=== PATIENT | female | born 1985 | race Caucasian/White ===

== ENCOUNTER 2016-05-30 14:39 | Inpatient (IN) ==
[2016-05-30 15:35] LABS: Bilirubin,Urine Negative (Negative); Blood,Urine Negative (Negative); Clarity,Urine Clear (Clear); Color,Urine Yellow (Yellow); Glucose,Urine (UA) Normal (Normal); Ketones,Urine Negative (Negative); Leukocyte Esterase,Urine Negative (Negative); Nitrite,Urine Negative (Negative); Protein,Urine 30 mg/dL (Neg-Trace); Specific Gravity,Urine 1.011 (1.010-1.025); Urobilinogen,Urine Normal (Normal)
[2016-05-30 15:38] LABS: Bacteria,Urine None Seen per hpf (None-Few); Hyaline Casts,Urine None Seen per lpf (None-Few); RBC,Urine 0-3 per hpf (0-3); Squamous Epithelial Cell,Urine Many per lpf (None-Few); WBC,Urine 0-3 per hpf (0-3)
--- NOTE | 2016-05-30 15:40 | Emergency Department Note ---
Disposition Clinical Impression: Hypokalemia Disposition: Admitted As Inpatient Condition: Good Referrals: NO,PCP [Primary Care Provider] - Forms: ED Satisfaction Letter Time of Disposition: 18:38 General Adult HPI - General Chief complaint: ED Weakness Stated complaint: multiple complaints Time Seen by Provider: 05/30/16 14:57 Source: patient Limitations: no limitations Nursing Notes Reviewed: Yes Vital Signs Reviewed: Yes - History of Present Illness HPI Narrative: 31-year-old presents to mention for weakness and difficulty ambulation. Patient states she had a history of hypokalemia that was so severe it was down to 1.3. She felt the same way she does now. She states she is unable to walk or ambulate. She feels extremely exhausted and has generalized muscle weakness. She denies vomiting or diarrhea. No fevers or chills. No new medications. She is is unclear as to why she had a low potassium at that time as she left the hospital prior to her conclusion of treatment. She returns today for the above symptoms. She has a known IV drug user as well. Onset (ago): day(s) Location: other (Generalized) Pain Scale: 6 Quality: aching Consistency: constant Improves with: nothing Worsens with: other (Activity) Associated symptoms: Reports: loss of appetite, malaise Treatments Prior to Arrival: none - Related Data Home Medications Medication Instructions Recorded Confirmed No Known Home Drugs 01/08/16 01/08/16 Allergies Allergy/AdvReac Type Severity Reaction Status Date / Time No Known Allergies Allergy Verified 05/30/16 14:47 All systems ED: reviewed and negative except as stated. Constitutional: Reports: weakness Cardiovascular: Reports: as per HPI Respiratory: Reports: as per HPI Gastrointestinal: Reports: as per HPI Genitourinary: Reports: frequency Musculoskeletal: Reports: arthralgia, myalgia Integumentary: Reports: as per HPI Neurological: Reports: as per HPI Psychiatric: Reports: as per HPI Endocrine: Reports: as per HPI Hematological/Lymphatic: Reports: as per HPI Allergic/Immunologic: Reports: as per HPI Past Medical History - Past Medical History Medical history: Reports: renal disease Surgical history: Reports: cholecystectomy 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: Reports: depression P[employer] history: Reports: spontaneous - Social History Smoking Status: Current every day smoker Smokeless Tobacco Status: No Alcohol use: Reports: occasionally Drug use: Reports: marijuana, IVDU Physical Exam - General Limitations: no limitations General appearance: alert, in no apparent distress - Head Head exam: atraumatic, normocephalic - ENT ENT exam: normal exam - Neck Neck exam: Present: normal inspection - Chest Chest inspection: Present: normal inspection - Respiratory Respiratory exam: Present: normal lung sounds bilaterally - Cardiovascular Cardiovascular exam: Present: regular rate, normal rhythm, normal heart sounds - Abdominal Exam Abdominal exam: Present: soft, Non-Tender - Extremities Exam Extremities exam: Present: normal inspection - Expanded Lower Extremity Exam Hip/Pelvis exam: Present: normal inspection - Neurological Exam Neurological exam: Present: other (Generalized weakness. pt unable to lift legs on bed.) - Psychiatric Psychiatric exam: Present: depressed - Skin Skin exam: Present: warm, dry, intact Course Course Narrative: Patient was found to have a potassium of 1.6. Her bicarbonate was also low at 11. She had a central line placed in the right internal jugular. We have started IV potassium on her. During the procedure, patient went into bigeminy. Her EKG was abnormal as well with some U waves present. I spoke with the hospitalist. Patient will be admitted to the ICU. Otherwise, her blood pressure is stable and heart rate are stable. Vital Signs Temperature 98.0 F 05/30/16 14:48 Pulse Rate 77 05/30/16 14:48 Respiratory Rate 18 05/30/16 14:48 Blood Pressure 119/85 05/30/16 14:48 O2 Sat by Pulse Oximetry 98 05/30/16 14:48 Temperature 98.0 F 05/30/16 14:48 Pulse Rate 83 05/30/16 18:21 Respiratory Rate 18 05/30/16 18:21 Blood Pressure 119/75 05/30/16 18:21 O2 Sat by Pulse Oximetry 97 05/30/16 18:21 Oxygen Delivery Oxygen Delivery Room Air Medical Decision Making - Medical Records Medical records reviewed: Yes I reviewed the patient's medical records. - Lab Data Lab results reviewed: Yes I reviewed the patient's lab results. Result diagrams: 05/30/16 15:54 05/30/16 15:54 Lab Results 05/30/16 05/30/16 05/30/16 Range/Units 15:10 15:10 15:54 WBC 11.9 H (4.3-11.1) K/mcL RBC 5.53 H (3.82-4.97) M/mcL Hgb 14.8 (11.5-15.4) g/dL Hct 46.1 H (35.3-44.9) % MCV 83.4 (83.0-100.0) fL MCH 26.8 L (28.0-33.3) pg MCHC 32.1 (31.6-35.5) g/dL RDW 18.2 H (11.5-14.5) % Plt Count 273 (140-400) K/mcL MPV 10.3 (9.4-12.4) fL Immature Gran % 0.4 (0-4) % Seg Neutrophils % 65.8 % Lymphocytes % 27.1 % Monocytes % 5.1 % Eosinophils % 1.3 % Basophils % 0.3 % Neutrophils # 7.8 (1.6-8.9) K/mcL Lymphocytes # 3.2 (0.6-4.6) K/mcL Monocytes # 0.6 (0.0-1.3) K/mcL Eosinophils # 0.2 (0.0-0.6) K/mcL Basophils # 0.0 (0.0-0.2) K/mcL Immature Plt Fraction 3.7 (1.1-6.1) % Sodium (136-145) mEq/L Potassium (3.5-4.5) mEq/L Chloride (98-109) mEq/L Carbon Dioxide (19-29) mEq/L BUN (7-20) mg/dL Creatinine (0.57-1.11) mg/dL Est GFR ( Amer) (> 60) Est GFR (Non-Af Amer) (> 60) BUN/Creatinine Ratio (6-26) Glucose (70-99) mg/dL Calculated Osmolality (280-300) Calcium (8.6-10.8) mg/dL Magnesium (1.6-2.6) mg/dL Troponin I (0-0.03) ng/mL Urine Color Yellow (Yellow) Urine Clarity Clear (Clear) Urine pH 7.0 (5.0-8.0) pH Units Ur Specific [place] 1.011 (1.010-1.025) Urine Protein 30 H (Neg-Trace) mg/dL Urine Glucose (UA) Normal (Normal) mg/dL Urine Ketones Negative (Negative) mg/dL Urine Blood Negative (Negative) Urine Nitrite Negative (Negative) Urine Bilirubin Negative (Negative) Urine Urobilinogen Normal (Normal) mg/dL Ur Leukocyte Esterase Negative (Negative) Urine Microscopic RBC 0-3 (0-3) per hpf Urine Microscopic WBC 0-3 (0-3) per hpf Ur Squamous Epith Cells Many H (None-Few) per lpf Urine Bacteria None Seen (None-Few) per hpf Hyaline Casts None Seen (None-Few) per lpf Ur Culture Indicated? NO (NO) Urine Test Negative (Negative) 05/30/16 05/30/16 Range/Units 15:54 15:54 WBC (4.3-11.1) K/mcL RBC (3.82-4.97) M/mcL Hgb (11.5-15.4) g/dL Hct (35.3-44.9) % MCV (83.0-100.0) fL MCH (28.0-33.3) pg MCHC (31.6-35.5) g/dL RDW (11.5-14.5) % Plt Count (140-400) K/mcL MPV (9.4-12.4) fL Immature Gran % (0-4) % Seg Neutrophils % % Lymphocytes % % Monocytes % % Eosinophils % % Basophils % % Neutrophils # (1.6-8.9) K/mcL Lymphocytes # (0.6-4.6) K/mcL Monocytes # (0.0-1.3) K/mcL Eosinophils # (0.0-0.6) K/mcL Basophils # (0.0-0.2) K/mcL Immature Plt Fraction (1.1-6.1) % Sodium 139 (136-145) mEq/L Potassium 1.6 L* (3.5-4.5) mEq/L Chloride 119 H (98-109) mEq/L Carbon Dioxide 11 L (19-29) mEq/L BUN 14 (7-20) mg/dL Creatinine 0.77 (0.57-1.11) mg/dL Est GFR ( Amer) > 60 (> 60) Est GFR (Non-Af Amer) > 60 (> 60) BUN/Creatinine Ratio 18 (6-26) Glucose 136 H (70-99) mg/dL Calculated Osmolality 291 (280-300) Calcium 8.6 (8.6-10.8) mg/dL Magnesium 2.3 (1.6-2.6) mg/dL Troponin I 0.00 (0-0.03) ng/mL Urine Color (Yellow) Urine Clarity (Clear) Urine pH (5.0-8.0) pH Units Ur Specific [place] (1.010-1.025) Urine Protein (Neg-Trace) mg/dL Urine Glucose (UA) (Normal) mg/dL Urine Ketones (Negative) mg/dL Urine Blood (Negative) Urine Nitrite (Negative) Urine Bilirubin (Negative) Urine Urobilinogen (Normal) mg/dL Ur Leukocyte Esterase (Negative) Urine Microscopic RBC (0-3) per hpf Urine Microscopic WBC (0-3) per hpf Ur Squamous Epith Cells (None-Few) per lpf Urine Bacteria (None-Few) per hpf Hyaline Casts (None-Few) per lpf Ur Culture Indicated? (NO) Urine Test (Negative) - Radiology Data Radiology results reviewed: Yes I reviewed the patient's radiology results. Critical Care Time Total Critical Care Time: 40 (Critical care time spent in consultation with the hospitalist as well as medical management of her hypokalemia.)
[2016-05-30 16:24] LABS: Basophils % 0.3 %; Eosinophils # 0.2 K/mcL (0.0-0.6); Eosinophils % 1.3 %; Hematocrit 46.1 % (35.3-44.9); Hemoglobin 14.8 g/dL (11.5-15.4); Immature Granulocytes % 0.4 % (0-4); Immature Platelets 3.7 % (1.1-6.1); Lymphocytes # 3.2 K/mcL (0.6-4.6); Lymphocytes % 27.1 %; Mean Corpuscular HGB Conc 32.1 g/dL (31.6-35.5); Mean Corpuscular Hemoglobin 26.8 pg (28.0-33.3); Mean Corpuscular Volume 83.4 fL (83.0-100.0); Mean Platelet Volume 10.3 fL (9.4-12.4); Monocytes # 0.6 K/mcL (0.0-1.3); Monocytes % 5.1 %; Neutrophils # 7.8 K/mcL (1.6-8.9); Platelet Count 273 K/mcL (140-400); Red Blood Count 5.53 M/mcL (3.82-4.97); Red Cell Distribution Width 18.2 % (11.5-14.5); Segmented Neutrophils % 65.8 %
[2016-05-30 16:43] LABS: BUN/Creatinine Ratio 18 (6-26); Blood Urea Nitrogen 14 mg/dL (7-20); Calcium 8.6 mg/dL (8.6-10.8); Carbon Dioxide 11 mEq/L (19-29); Chloride 119 mEq/L (98-109); Glucose 136 mg/dL (70-99); Magnesium 2.3 mg/dL (1.6-2.6); Osmolality,Calculated 291 (280-300); Sodium 139 mEq/L (136-145); eGFR For African Americans > 60 (> 60); eGFR For Non-African Americans > 60 (> 60)
[2016-05-30 16:46] LABS: Potassium 1.6 mEq/L (3.5-4.5)
[2016-05-30] MEDS: Potassium Chloride 40 MEQ/200 ML BAG IVPB PRN ×2 (18:03→20:30)
--- NOTE | 2016-05-30 18:23 | Emergency Department Note ---
Disposition Clinical Impression: Hypokalemia Disposition: Admitted As Inpatient Condition: Good Referrals: NO,PCP [Primary Care Provider] - Forms: ED Satisfaction Letter General Adult HPI - General Chief complaint: ED Weakness Stated complaint: multiple complaints Time Seen by Provider: 05/30/16 14:57 Source: patient Limitations: no limitations - History of Present Illness Location: other (Generalized) Pain Scale: 6 Quality: aching Improves with: nothing Worsens with: other (Activity) Associated symptoms: Reports: loss of appetite, malaise Treatments Prior to Arrival: none - Related Data Home Medications Medication Instructions Recorded Confirmed No Known Home Drugs 01/08/16 01/08/16 Allergies Allergy/AdvReac Type Severity Reaction Status Date / Time No Known Allergies Allergy Verified 05/30/16 14:47 Constitutional: Reports: weakness Cardiovascular: Reports: as per HPI Respiratory: Reports: as per HPI Gastrointestinal: Reports: as per HPI Genitourinary: Reports: frequency Musculoskeletal: Reports: arthralgia, myalgia Integumentary: Reports: as per HPI Neurological: Reports: as per HPI Psychiatric: Reports: as per HPI Endocrine: Reports: as per HPI Hematological/Lymphatic: Reports: as per HPI Allergic/Immunologic: Reports: as per HPI Past Medical History - Past Medical History Medical history: Reports: renal disease Surgical history: Reports: cholecystectomy 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: Reports: 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 - Social History Smoking Status: Current every day smoker Smokeless Tobacco Status: No Alcohol use: Reports: occasionally Drug use: Reports: marijuana, IVDU Physical Exam - General Limitations: no limitations General appearance: alert, in no apparent distress Course Vital Signs Temperature 98.0 F 05/30/16 14:48 Pulse Rate 77 05/30/16 14:48 Respiratory Rate 18 05/30/16 14:48 Blood Pressure 119/85 05/30/16 14:48 O2 Sat by Pulse Oximetry 98 05/30/16 14:48 Temperature 98.0 F 05/30/16 14:48 Pulse Rate 78 05/30/16 16:41 Respiratory Rate 18 05/30/16 16:41 Blood Pressure 120/76 05/30/16 16:41 O2 Sat by Pulse Oximetry 97 05/30/16 16:41 Oxygen Delivery Oxygen Delivery Room Air Procedures - Central Line Placement Right IJ Central Line Inserted*: Yes Central Line Insertion: elective Consent Obtained: written consent Procedural Pause: verify patient name and date of , timeout performed per policy, gabriella and assess the site, assemble equipment and verify supplies, perform hand hygiene Patient Placed on Monitor/Pulse Ox: Yes During the Procedure: clinician is wearing sterile gloves, cap, mask,& gown during insertion, sterile field and sterile technique are maintained, patient's face is covered with drape or mask and wearing a cap, everyone in room is wearing a mask Central Line Prep: Chlorhexidine scrub Prep the Procedure Site: apply chloraprep to the skin using a back and forth scrubbing motion, apply chloraprep for 30 seconds (upper body), 1-2 min ( femoral sites), drape the patient with a full body drape Local Anesthetic: lidocaine 1% Amount of anesthesia used (mL): 4 Ultrasound Used for Placement: Yes Central Line Lumen Inserted: triple Post Procedure: sutured in place, good blood return, all ports aspirated, flushed, capped, sterile dressing applied, guide wire removed and visualized Post Procedure X-Ray: tip of catheter in good position, no pneumothorax seen Patient Tolerated Procedure: well Complications: none Name of Clinician Inserting Central Line: Denton Navarrete D.O. Date: 05/30/16 Time: 18:22 Medical Decision Making - Lab Data Result diagrams: 05/30/16 15:54 05/30/16 15:54 Lab Results 05/30/16 05/30/16 05/30/16 Range/Units 15:10 15:10 15:54 WBC 11.9 H (4.3-11.1) K/mcL RBC 5.53 H (3.82-4.97) M/mcL Hgb 14.8 (11.5-15.4) g/dL Hct 46.1 H (35.3-44.9) % MCV 83.4 (83.0-100.0) fL MCH 26.8 L (28.0-33.3) pg MCHC 32.1 (31.6-35.5) g/dL RDW 18.2 H (11.5-14.5) % Plt Count 273 (140-400) K/mcL MPV 10.3 (9.4-12.4) fL Immature Gran % 0.4 (0-4) % Seg Neutrophils % 65.8 % Lymphocytes % 27.1 % Monocytes % 5.1 % Eosinophils % 1.3 % Basophils % 0.3 % Neutrophils # 7.8 (1.6-8.9) K/mcL Lymphocytes # 3.2 (0.6-4.6) K/mcL Monocytes # 0.6 (0.0-1.3) K/mcL Eosinophils # 0.2 (0.0-0.6) K/mcL Basophils # 0.0 (0.0-0.2) K/mcL Immature Plt Fraction 3.7 (1.1-6.1) % Sodium (136-145) mEq/L Potassium (3.5-4.5) mEq/L Chloride (98-109) mEq/L Carbon Dioxide (19-29) mEq/L BUN (7-20) mg/dL Creatinine (0.57-1.11) mg/dL Est GFR ( Amer) (> 60) Est GFR (Non-Af Amer) (> 60) BUN/Creatinine Ratio (6-26) Glucose (70-99) mg/dL Calculated Osmolality (280-300) Calcium (8.6-10.8) mg/dL Magnesium (1.6-2.6) mg/dL Troponin I (0-0.03) ng/mL Urine Color Yellow (Yellow) Urine Clarity Clear (Clear) Urine pH 7.0 (5.0-8.0) pH Units Ur Specific [place] 1.011 (1.010-1.025) Urine Protein 30 H (Neg-Trace) mg/dL Urine Glucose (UA) Normal (Normal) mg/dL Urine Ketones Negative (Negative) mg/dL Urine Blood Negative (Negative) Urine Nitrite Negative (Negative) Urine Bilirubin Negative (Negative) Urine Urobilinogen Normal (Normal) mg/dL Ur Leukocyte Esterase Negative (Negative) Urine Microscopic RBC 0-3 (0-3) per hpf Urine Microscopic WBC 0-3 (0-3) per hpf Ur Squamous Epith Cells Many H (None-Few) per lpf Urine Bacteria None Seen (None-Few) per hpf Hyaline Casts None Seen (None-Few) per lpf Ur Culture Indicated? NO (NO) Urine Test Negative (Negative) 05/30/16 05/30/16 Range/Units 15:54 15:54 WBC (4.3-11.1) K/mcL RBC (3.82-4.97) M/mcL Hgb (11.5-15.4) g/dL Hct (35.3-44.9) % MCV (83.0-100.0) fL MCH (28.0-33.3) pg MCHC (31.6-35.5) g/dL RDW (11.5-14.5) % Plt Count (140-400) K/mcL MPV (9.4-12.4) fL Immature Gran % (0-4) % Seg Neutrophils % % Lymphocytes % % Monocytes % % Eosinophils % % Basophils % % Neutrophils # (1.6-8.9) K/mcL Lymphocytes # (0.6-4.6) K/mcL Monocytes # (0.0-1.3) K/mcL Eosinophils # (0.0-0.6) K/mcL Basophils # (0.0-0.2) K/mcL Immature Plt Fraction (1.1-6.1) % Sodium 139 (136-145) mEq/L Potassium 1.6 L* (3.5-4.5) mEq/L Chloride 119 H (98-109) mEq/L Carbon Dioxide 11 L (19-29) mEq/L BUN 14 (7-20) mg/dL Creatinine 0.77 (0.57-1.11) mg/dL Est GFR ( Amer) > 60 (> 60) Est GFR (Non-Af Amer) > 60 (> 60) BUN/Creatinine Ratio 18 (6-26) Glucose 136 H (70-99) mg/dL Calculated Osmolality 291 (280-300) Calcium 8.6 (8.6-10.8) mg/dL Magnesium 2.3 (1.6-2.6) mg/dL Troponin I 0.00 (0-0.03) ng/mL Urine Color (Yellow) Urine Clarity (Clear) Urine pH (5.0-8.0) pH Units Ur Specific [place] (1.010-1.025) Urine Protein (Neg-Trace) mg/dL Urine Glucose (UA) (Normal) mg/dL Urine Ketones (Negative) mg/dL Urine Blood (Negative) Urine Nitrite (Negative) Urine Bilirubin (Negative) Urine Urobilinogen (Normal) mg/dL Ur Leukocyte Esterase (Negative) Urine Microscopic RBC (0-3) per hpf Urine Microscopic WBC (0-3) per hpf Ur Squamous Epith Cells (None-Few) per lpf Urine Bacteria (None-Few) per hpf Hyaline Casts (None-Few) per lpf Ur Culture Indicated? (NO) Urine Test (Negative)
--- NOTE | 2016-05-30 22:13 | Internal Med History&Physical ---
Date of Encounter: 05/30/16 Time of Encounter: 21:45 Assessment and Plan (1) Hypokalemia Current visit: Yes Status: Acute Patient had a previous episode of hypokalemia requiring admission in ICU monitoring, she did not follow-up with a physician at that time but stay continued on 10 mEq [id number] potassium daily. 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 Patient received 80 mEq IV potassium previously. Plan as above (3) Abscess Current visit: Yes Status: Acute Deep, exudative wound with exudates and mass immediately deep to patient wound, concerning for abscess Vancomycin dose per pharmacy Zosyn We will obtain wound cultures Consult surgery regarding management/care Consult wound management (4) DVT prophylaxis Current visit: No Status: Acute 5000 units heparin subcutaneous every 8 hours Internal Medicine - H&P: HPI Chief complaint: Weakness Admitted From: Emergency Dept Plans for Post Hospital Care: Home History of present illness: Ms. Lopez is a 31 year old female with prior medical history of an episode of hypokalemia last December presents to the emergency department the day of due to 1 day onset of muscle weakness and numbness. She states this began last night with facial and hand numbness. She states this occurs every other day typically goes away with use of [id number] potassium. Unfortunately, instead of going away her weakness became progressively worse and now reports significant proximal extremity weakness as well as pain (that she describes as a charley horse/cramping there is 8/10 in severity). Admission she was found to have a potassium of 1.6 and had been receiving IV potassium through central line, she has continued to have hypokalemia first diagnosed in December 2015 after which she did not follow-up with any practitioner. She states she has been taking 10 mEq potassium [id number] every day with occasional increase in dosage which he feels symptomatic. Normally this worked for her. She denies usage of any diuretics, any laxatives , as only had one episode of emesis this morning. She also describes a wound located on her left inner thigh, that she states is been there for couple of days. She states her current wound started as a pimple. The wound that she has now she states is in direct opposition to her previous wound she had on her right inner thigh. The previous wound went away with her home treatment, but this current wound is painful, deep, injuring the yellowish fluid. She states it has felt a little bit better after she was able to drain some of the fluid. Past Med Surg Social Fam HX - Past Medical History Medical history: renal disease 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: depression - Past Surgical History Surgical History: cholecystectomy - Social History Smoking Status: Current every day smoker Packs per day: 2 pack day Smokeless Tobacco Status: No Alcohol use: occasionally Drug use: marijuana, IVDU - Family History Mother Family Member Ethnicity: Non- Living Status: Age at : 50 Cause of : CHF Hx Family Cardiac Disorders: Yes Father Family Member Ethnicity: Non- Living Status: Still Living Hx Family Cardiac Disorders: Yes Hx Family Cancer: Yes Brother Family Member Ethnicity: Non- Living Status: Age at : 28 Cause of : Overdose of Morphine Internal Medicine - H&P: Meds No Known Home Drugs 01/08/16 [History] Allergies No Known Allergies Allergy (Verified 05/30/16 14:47) - Constitutional Constitutional: weakness, no anorexia, no chills, no fatigue, no fever(s) - EENT Eyes: no floaters, no loss of vision - Cardiovascular Cardiovascular ROS IM: no chest pain, no diaphoresis, no dyspnea, no edema, no lightheadedness, no orthopnea, no palpitations - Respiratory Respiratory: pain on inspiration, no cough, no dyspnea, no hemoptysis, no chest congestion - Gastrointestinal Gastrointestinal: as per HPI, nausea, vomiting, no abdominal pain, no constipation, no diarrhea, no hematemesis, no hematochezia - Musculoskeletal Musculoskeletal ROS IM: as per HPI, muscle cramps, muscle weakness, numbness, no arthralgias, no back pain - Integumentary Integumentary IM: as per HPI, new lesions - Neurological Neurological ROS: numbness, weakness, no headache(s) - Endocrine Endocrine IM: no polyuria - Constitutional Vitals: Temp Pulse Resp BP Pulse Ox 98.1 F 73 16 125/81 97 05/30/16 19:15 05/30/16 21:00 05/30/16 21:00 05/30/16 21:00 05/30/16 21:00 General appearance: Present: cooperative, mild distress, A&O X 3, pleasant, answers questions appropriately - Head Head exam: Present: atraumatic, normocephalic - Eye Eye exam: Present: PERRL, conjuntiva pink, sclera anicteric Pupils: Present: PERRL - ENT ENT exam: Present: mucous membranes moist - Neck Neck exam general surgery: Present: supple, trachea midline. Absent: lymphadenopathy - Respiratory Respiratory exam: Present: CTAB. Absent: accessory muscle use, rales, rhonchi, wheezes - Cardiovascular Cardiovascular exam: Present: RRR, +S1, +S2. Absent: diastolic murmur, gallop, rubs, systolic murmur - GI/Abdominal GI/Abdominal exam: Present: normal bowel sounds, soft, no peritoneal signs. Absent: distended, tenderness - Extremities Exam Extremities exam: Present: warm, radial pulses palpable and symetrical. Absent : calf tenderness, cyanotic, pedal edema Additional comments: Deep, 1 cm diameter, ulcerated wound on left inner thigh - yellowish exudate present, 2 cm firm mass felt immediately deep to the wound. No surrounding erythema, induration, or subcutaneous crepitus noted - Neurological Exam Neurological exam: Present: alert, CN II-XII intact, oriented X3, reflexes normal, no focal deficits. Absent: strengths equal and symetr throughout (2-3/ 5 in bilateral upper and lower Thrasher is), pronater drift, facial droop, speech deficit - Psychiatric Psychiatric exam: Present: normal affect, normal mood - Skin Skin exam: Present: dry. Absent: intact Internal Med - H&P Results - Labs CBC & Chem 7: 05/30/16 15:54 05/30/16 22:40
[2016-05-30] MEDS ORDERED: Acetaminophen 325 MG TABLET PO PRN (22:14)
[2016-05-30] MEDS ORDERED: *HR* HYDROmorphone (PF) 1 MG/ML SYRINGE IVP PRN (22:14)
[2016-05-30] MEDS ORDERED: Naloxone 0.4 MG/ML INJ IVP PRN (22:14)
[2016-05-30] MEDS ORDERED: Ondansetron 4 MG/2 ML VIAL IVP PRN (22:14)
[2016-05-30] MEDS ORDERED: Potassium Chloride Elixir 20 MEQ/15 ML UDC PO ONE (22:30)
[2016-05-30 22:55] LABS: Prothrombin Time 11.2 Seconds (9.4-12.1)
[2016-05-30] MEDS ORDERED: Potassium Chloride 40 MEQ/200 ML BAG IVPB ONE (23:00)
[2016-05-30] MEDS ORDERED: Vancomycin 1,250 MG in D5% in Water 250 ML IVPB SCH (23:00)
[2016-05-30] MEDS: Nicotine 14 MG PATCH.TD24 TD SCH (23:01)
[2016-05-30] MEDS: *HR* OxyCODONE Immed Rel 5 MG TABLET PO PRN (23:02)
[2016-05-30] MEDS: Piperacillin/Tazobactam 3.375 GM in D5% in Water (Mini-Bag+) 100 ML IVPB SCH (23:03)
[2016-05-30 23:10] LABS: BUN/Creatinine Ratio 21 (6-26); Blood Urea Nitrogen 15 mg/dL (7-20); Calcium 8.5 mg/dL (8.6-10.8); Carbon Dioxide 13 mEq/L (19-29); Chloride 118 mEq/L (98-109); Glucose 110 mg/dL (70-99); Magnesium 2.3 mg/dL (1.6-2.6); Osmolality,Calculated 287 (280-300); Sodium 138 mEq/L (136-145); eGFR For African Americans > 60 (> 60); eGFR For Non-African Americans > 60 (> 60)
[2016-05-30 23:51] LABS: Amphetamine Screen,Urine Negative ng/mL (Cutoff=1000); Barbiturate Screen,Urine Negative ng/mL (Cutoff=200); Benzodiazepines Screen,Urine Negative ng/mL (Cutoff=200); Cannabinoid Screen,Urine Negative ng/mL (Cutoff = 50); Cocaine Screen,Urine Negative ng/mL (Cutoff= 300); Opiate Screen,Urine Negative ng/mL (Cutoff=300); Phencyclidine Screen,Urine Negative ng/mL (Cutoff=25)
[2016-05-30] MEDS: Vancomycin 1,250 MG in D5% in Water 250 ML IVPB SCH (23:51)
[2016-05-31] MEDS ORDERED: Magnesium Sulfate 1 GM in D5% in Water 100 ML IVPB ONE (00:04)
--- NOTE | 2016-05-31 00:26 | Event Note ---
Date of Encounter: 05/31/16 Time of Encounter: 00:22 Patient seen and examined with medical consultant. 31 years old female presented with progressive weakness. Muscle power currently in 4 extremities is 2 to 3 out of 5. Similar presentation in December 2015. Workup unrevealing. 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 80 mg IV potassium was given. Repeat potassium from 1.6. Will give 40 IV potassium and 40 PO potassium as well as 1 g of magnesium and repeat electrolytes afterwards. We will check run them all to see her on cortisol level TSH free T4 24 hour urine potassium. Patient is having muscle cramps may be related to hypokalemia however we will check CPK level for possibility of hypokalemia induced rhabdomyolysis. Patient is having an open want in the left inner thigh with Purulent drainage. Culture is obtained. Patient started on vancomycin and Zosyn. Obtain consultations from nephrology and neurology. Patient was having arrhythmias in the emergency room and therefore she will be admitted to intensive care unit. She has a central line. Prognosis guarded
[2016-05-31 02:06] LABS: Potassium,Urine 14.2 mEq/L
[2016-05-31] MEDS: Potassium Chloride 40 MEQ/200 ML BAG IVPB PRN ×5 (02:12→22:27)
[2016-05-31] MEDS: *HR* OxyCODONE Immed Rel 5 MG TABLET PO PRN ×3 (05:07→20:26)
[2016-05-31] MEDS: *HR* Heparin 5,000 UNIT/ML VIAL SQ SCH ×3 (05:08→20:19)
[2016-05-31 05:47] LABS: Basophils % 0.3 %; Eosinophils # 0.3 K/mcL (0.0-0.6); Eosinophils % 2.9 %; Hemoglobin 13.6 g/dL (11.5-15.4); Immature Granulocytes % 0.5 % (0-4); Lymphocytes # 3.3 K/mcL (0.6-4.6); Lymphocytes % 32.3 %; Mean Corpuscular HGB Conc 32.4 g/dL (31.6-35.5); Mean Corpuscular Hemoglobin 26.9 pg (28.0-33.3); Mean Platelet Volume 10.7 fL (9.4-12.4); Monocytes # 0.6 K/mcL (0.0-1.3); Monocytes % 6.1 %; Neutrophils # 5.9 K/mcL (1.6-8.9); Platelet Count 237 K/mcL (140-400); Red Blood Count 5.06 M/mcL (3.82-4.97); Red Cell Distribution Width 17.9 % (11.5-14.5); Segmented Neutrophils % 57.9 %
[2016-05-31 06:01] LABS: Alanine Aminotransferase 11 Units/L (0-55); Albumin 2.7 g/dL (3.5-5.0); Albumin/Globulin Ratio 0.7 (1.1-2.2); Alkaline Phosphatase 98 Units/L (38-126); Aspartate Amino Transferase 10 Units/L (5-34); BUN/Creatinine Ratio 19 (6-26); Bilirubin,Total 0.3 mg/dL (0.2-1.2); Blood Urea Nitrogen 14 mg/dL (7-20); Calcium 8.1 mg/dL (8.6-10.8); Carbon Dioxide 14 mEq/L (19-29); Chloride 117 mEq/L (98-109); Globulin 4.1 g/dL (2.4-3.5); Glucose 92 mg/dL (70-99); Magnesium 2.6 mg/dL (1.6-2.6); Osmolality,Calculated 286 (280-300); Sodium 138 mEq/L (136-145); Total Protein 6.8 g/dL (6.0-8.3); eGFR For African Americans > 60 (> 60); eGFR For Non-African Americans > 60 (> 60)
[2016-05-31] MEDS ORDERED: Aminoglycoside Consult 1 EACH MC ONE (07:44)
[2016-05-31] MEDS: Piperacillin/Tazobactam 3.375 GM in D5% in Water (Mini-Bag+) 100 ML IVPB SCH ×3 (08:23→23:30)
[2016-05-31] MEDS: Pantoprazole 40 MG VIAL IVP SCH (08:24)
[2016-05-31] MEDS: Nicotine 14 MG PATCH.TD24 TD SCH ×2 (08:24→14:06)
[2016-05-31] MEDS: Sodium Bicarbonate 150 MEQ in D5% in Water 1,000 ML IVC SCH ×2 (09:19→22:55)
--- NOTE | 2016-05-31 09:50 | Pulmonology Consult Note ---
Date of Encounter: 05/31/16 Time of Encounter: 09:49 Assessment and Plan (1) Hypokalemia Current Visit: Yes Status: Chronic Initially patient presented to ER with the potassium of 1.6, after receiving total of 120 meq potassium, her repeated potassium increased to 2.5. 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 Nephrology has been consulted, we will continue to closely monitor patient's potassium level and replace as needed. Her symptoms of facial tingling numbness and extremity weakness are improving with potassium supplement. (2) Abscess of left thigh Current Visit: Yes Status: Acute Surgery has been consulted, wound and blood cultures have been received, patient is currently on vancomycin and Zosyn IV, we will follow surgery's recommendation. (3) Bilateral leg weakness Current Visit: No Status: Acute This is likely secondary to severe hypokalemia and neurology has been consulted by night hospitalist team. Also potassium supplementation, patient's symptoms have been improving, continue to closely monitor patient's potassium level. (4) Thyroid nodule Current Visit: No Status: Chronic This is incidental finding from previous admission's MRI of her cervical spine, follow-up as outpatient for thyroid ultrasound. (5) DVT prophylaxis Current Visit: No Status: Acute Heparin SQ daily. History of Present Illness Consult date: 05/31/16 Requesting physician: Bennett Sheriff Reason for consult: other (Hypokalemia) Chief complaint: Facial tingling numbness, upper and lower extremity weakness History of present illness: This is a 31 years old female with history of IV drug use who came to the hospital with chief complaint of facial numbness tingling with upper and lower bilateral extremity weakness. Patient was admitted to this hospital December last year for same symptom and she was diagnosed with severe hypokalemia back then, failed to follow up with any specialists as outpt. In the ER this time she was also found to have a severe hypokalemia of 1.6, she received so far total of 120 meq potassium through PO and IV form, repeated level went up to 2.0. She was taking [id number] potassium supplements whenever she gets the same symptoms. Patient denies recent use of diuretic or laxative. Patient also denies excessive nausea vomiting or diarrhea. Patient also presented with inner left thigh abscess and this was started 5 days ago, patient denies any recent history of wound, injury or IV drug use. patient I and D the abscess by herself few days ago and she drained yellowish pus out of the wound, she still complains of pain in her left inner thigh area. Past Med Surg Social Fam HX - Past Medical History Medical history: renal disease 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: depression - Past Surgical History Surgical History: cholecystectomy - Social History Smoking Status: Current every day smoker Packs per day: 2 pack day Smokeless Tobacco Status: No Alcohol use: occasionally Drug use: marijuana, IVDU - Family History Mother Family Member Ethnicity: Non- Living Status: Age at : 50 Cause of : CHF Hx Family Cardiac Disorders: Yes Father Family Member Ethnicity: Non- Living Status: Still Living Hx Family Cardiac Disorders: Yes Hx Family Cancer: Yes Brother Family Member Ethnicity: Non- Living Status: Age at : 28 Cause of : Overdose of Morphine Medications and Allergies No Known Home Drugs 01/08/16 [History] Allergies No Known Allergies Allergy (Verified 05/30/16 14:47) All Systems: A 10-system review of systems was performed and is negative for pertinent findings except as documented above in the HPI. Review of Systems: Patient admits facial tingling numbness, bilateral upper and lower extremity weakness, but denies fever, chills, headache, shortness of breath, chest pain, productive cough, abdominal pain, diarrhea, constipation or dysuria. Physical Examination Vital Signs: Vital Signs, Last 4 Hours Pulse Resp BP Pulse Ox 05/31/16 08:30 72 18 115/68 97 05/31/16 07:32 77 19 94/65 95 05/31/16 06:00 69 16 104/56 95 General appearance: no acute distress, alert Eyes: nonicteric ENT: oropharynx moist Neck: supple Effort: normal Inspection: normal Auscultation: bilateral: clear Cardiovascular: regular rate and rhythm Gastrointestinal: normoactive bowel sounds, non-distended Integumentary: normal Extremities: other (Deep, ulcerated wound on left inner thigh - no exudate present, no surrounding erythema, induration, or subcutaneous crepitus noted. Tender to light touch.) Musculoskeletal: no deformities normal mental status, non-focal exam mood appropriate, affect normal Results - Laboratory Findings CBC and BMP: 05/31/16 04:40 05/31/16 11:15 PT/INR, D-dimer PT 11.2 Seconds (9.4-12.1) 05/30/16 22:40 Abnormal lab findings: Abnormal lab results RBC 5.06 M/mcL (3.82-4.97) H 05/31/16 04:40 MCH 26.9 pg (28.0-33.3) L 05/31/16 04:40 RDW 17.9 % (11.5-14.5) H 05/31/16 04:40 Potassium 2.0 mEq/L (3.5-4.5) L* 05/31/16 04:40 Chloride 117 mEq/L (98-109) H 05/31/16 04:40 Carbon Dioxide 14 mEq/L (19-29) L 05/31/16 04:40 POC Glucose 141 (58-89) H 05/30/16 19:30 Calcium 8.1 mg/dL (8.6-10.8) L 05/31/16 04:40 Albumin 2.7 g/dL (3.5-5.0) L 05/31/16 04:40 Globulin 4.1 g/dL (2.4-3.5) H 05/31/16 04:40 Albumin/Globulin Ratio 0.7 (1.1-2.2) L 05/31/16 04:40 Urine Protein 30 mg/dL (Neg-Trace) H 05/30/16 15:10 Ur Squamous Epith Cells Many per lpf (None-Few) H 05/30/16 15:10 Urine Osmolality 250 mOsm/kg (300-1090) L 05/30/16 22:45 - Clinical Findings Intake & Output: Intake & Output 05/30/16 05/31/16 05/31/16 23:59 07:59 15:59 Intake Total 560 / 560 Balance 560 / 560 Consult Discharge Plan - Plan Referrals: NO,PCP [Primary Care Provider] -
--- NOTE | 2016-05-31 10:05 | Neurology - Consult Note ---
<Akash Gill - Last Filed: 05/31/16 13:52> Date of Encounter: 05/31/16 Time of Encounter: 10:02 Assessment and Plan (1) Weakness Current Visit: No Status: Acute Likely related to her hypokalemia, as her symptoms are improving with aggressive repletion Nephrology has been consulted and currently working up RTA as she does have metabolic acidosis TSH and random cortisol collected have been WNL thus far During has last visit in December, MRI of entire spine was negative other than degenerative changes in L4-L5 Will order MRI of brain without contrast for further evaluation as there is no previous head imaging (2) Hypokalemia Current Visit: Yes Status: Chronic Initially presented with potassium of 1.6 and she has received replacements via central line Repletion and rechecks per primary team and nephrology 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 Lopez is a 31 year old female who presents with numbness and weakness. She states that she had facial numbness starting yesterday at rest and she progressed to bilateral arm and leg weakness. She had a similar episode last December where she was admitted here but left AMA and was lost to follow-up as she was noncompliant. She states she gets intermittent numbness and weakness of her face and arms, but takes potassium pills [id number], usually 10-20 mEq, and her symptoms usually resolve. However, this past episode was not relieved with potassium pills. She states her symptoms were progressive until she received potassium through her IV, which at one point she was unable to walk. She also mentioned having one episode of nausea and vomiting. She denies any loss of consciousness, fevers, recent illnesses, shortness of breath. Of note, patient does have history of IV drug abuse, but denies any usage since last December. She does claim that both her parents take potassium pills, but is unsure of the reason. Patient denies any laxatives or diuretic abuse, and does not have chronic vomiting or diarrhea. Past Med Surg Social Fam HX - Past Medical History Medical history: renal disease 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: depression - Past Surgical History Surgical History: cholecystectomy - Social History Smoking Status: Current every day smoker Packs per day: 2 pack day Smokeless Tobacco Status: No Alcohol use: occasionally Drug use: marijuana, IVDU - Family History Mother Family Member Ethnicity: Non- Living Status: Age at : 50 Cause of : CHF Hx Family Cardiac Disorders: Yes Father Family Member Ethnicity: Non- Living Status: Still Living Hx Family Cardiac Disorders: Yes Hx Family Cancer: Yes Brother Family Member Ethnicity: Non- Living Status: Age at : 28 Cause of : Overdose of Morphine Medications and Allergies No Known Home Drugs 01/08/16 [History] Allergies No Known Allergies Allergy (Verified 05/30/16 14:47) All Systems: A 10-system review of systems was performed and is negative for pertinent findings except as documented above in the HPI. - Constitutional Constitutional ROS IM: weakness, no chills, no fever(s) - Nose, Mouth, Throat Nose, mouth and throat: headache(s), no dizziness, no dysphagia - Cardiovascular Cardiovascular ROS IM: chest pain, leg ulcers, no dyspnea - Respiratory Respiratory IM: no cough, no dyspnea, no hemoptysis - Gastrointestinal Gastrointestinal: nausea, vomiting, no bloating, no diarrhea, no hematemesis, no hematochezia, no melena - Genitourinary Genitourinary ROS: no difficulty voiding, no hematuria - Musculoskeletal Musculoskeletal ROS IM: abnormal gait, muscle weakness, numbness, no back pain - Integumentary Integumentary IM: skin ulcer - Neurological Neurological ROS: abnormal gait, headache(s), numbness, no abnormal hearing, no abnormal speech, no frequent falls, no syncope, no tingling, no tremor(s) Physical Examination - Vital Signs Vital Signs: Initial Vital Signs Temp Pulse Resp BP Pulse Ox 98.0 F 77 18 119/85 98 05/30/16 14:48 05/30/16 14:48 05/30/16 14:48 05/30/16 14:48 05/30/16 14:48 - Exam Exam: Track steiner noted bilaterally in antecubital fossa and wrists Open abscess seen in left medial thigh, draining purulent fluid - Constitutional General appearance: comfortable - Neurologic Sensorimotor examination: intact Detailed motor examination: other Motor examination - right side: 4/5: hip flexors, 5/5: deltoids, biceps, triceps , plant utility person Motor examination - left side: 4/5: hip flexors, 5/5: deltoids, biceps, triceps , plant utility person Reflex and gait examination: intact Reflexes: Biceps: 2+, Triceps: 2+, Patella: 2+ Mental Status Examination: awake, alert, oriented to person, oriented to place, oriented to time, follows commands appropriately, answers questions appropriately, no agnosia, no aphasia Cranial nerve examination: PERRL, EOMI Cerebellar examination: no dysmetria, performs finger to nose and heel to mclaughlin symmetrically without ataxia Results - Laboratory Findings CBC and BMP: 05/31/16 04:40 05/31/16 11:15 Abnormal lab findings: Abnormal lab results RBC 5.06 M/mcL (3.82-4.97) H 05/31/16 04:40 MCH 26.9 pg (28.0-33.3) L 05/31/16 04:40 RDW 17.9 % (11.5-14.5) H 05/31/16 04:40 Potassium 2.0 mEq/L (3.5-4.5) L* 05/31/16 04:40 Chloride 117 mEq/L (98-109) H 05/31/16 04:40 Carbon Dioxide 14 mEq/L (19-29) L 05/31/16 04:40 POC Glucose 141 (58-89) H 05/30/16 19:30 Calcium 8.1 mg/dL (8.6-10.8) L 05/31/16 04:40 Albumin 2.7 g/dL (3.5-5.0) L 05/31/16 04:40 Globulin 4.1 g/dL (2.4-3.5) H 05/31/16 04:40 Albumin/Globulin Ratio 0.7 (1.1-2.2) L 05/31/16 04:40 Urine Protein 30 mg/dL (Neg-Trace) H 05/30/16 15:10 Ur Squamous Epith Cells Many per lpf (None-Few) H 05/30/16 15:10 Urine Osmolality 250 mOsm/kg (300-1090) L 05/30/16 22:45 Consult Discharge Plan - Plan Referrals: NO,PCP [Primary Care Provider] - <Ana Maria Gonzales I - Last Filed: 06/01/16 14:26> Assessment and Plan (1) Bilateral leg weakness Current Visit: No Status: Acute (2) Weakness Current Visit: No Status: Acute Seen and examined aggravated with Dr. Gill history physical exam findings, no focal deficit on her current neurological examination, except generalized weakness particularly no change in that his reflexes to be consent or suggestive of GBS. I suspect that her symptoms are likely related to underlying significant hypokalemia that has been treated. She did have an episode with similar symptoms in the past with very low potassium. She also mentioned that there are several family members in the family who does take potassium on a regular basis. It is quite possible that her symptoms could be related to hypokalemic periodic paralysis. Concerning his diagnosis she would require further neuromuscular workup including EMG nerve conduction studies as well as blood tests particularly for some genetic testing and perhaps may need muscle biopsy. At this time I would recommend that we should continue to treat the underlying dysfunction slowly correct her metabolic acidosis as well as her hypokalemia. She is a stable and discharged perhaps she could be evaluated at neuromuscular center like [facility] for further workup. I have explained and discussed in detail to the patient she does agrees with the plan. Ana Maria Gonzales MD History of Present Illness HPI: Ms. Lopez is a 31 year old female All Systems: A 10-system review of systems was performed and is negative for pertinent findings except as documented above in the HPI. Physical Examination - Vital Signs Vital Signs: Initial Vital Signs Temp Pulse Resp BP Pulse Ox 98.0 F 77 18 119/85 98 05/30/16 14:48 05/30/16 14:48 05/30/16 14:48 05/30/16 14:48 05/30/16 14:48 Results - Laboratory Findings CBC and BMP: 05/31/16 04:40 06/01/16 10:45 Abnormal lab findings: Abnormal lab results RBC 5.06 M/mcL (3.82-4.97) H 05/31/16 04:40 MCH 26.9 pg (28.0-33.3) L 05/31/16 04:40 RDW 17.9 % (11.5-14.5) H 05/31/16 04:40 Potassium 3.3 mEq/L (3.5-4.5) L 06/01/16 10:45 Chloride 111 mEq/L (98-109) H 06/01/16 03:45 Glucose 122 mg/dL (70-99) H 06/01/16 03:45 POC Glucose 141 (58-89) H 05/30/16 19:30 Calcium 7.6 mg/dL (8.6-10.8) L 06/01/16 03:45 Albumin 2.7 g/dL (3.5-5.0) L 05/31/16 04:40 Globulin 4.1 g/dL (2.4-3.5) H 05/31/16 04:40 Albumin/Globulin Ratio 0.7 (1.1-2.2) L 05/31/16 04:40 Urine Protein 30 mg/dL (Neg-Trace) H 05/30/16 15:10 Ur Squamous Epith Cells Many per lpf (None-Few) H 05/30/16 15:10 Urine Osmolality 250 mOsm/kg (300-1090) L 05/30/16 22:45
--- NOTE | 2016-05-31 10:30 | General Surgery Consult Note ---
<Ananya Lozano Milvia - Last Filed: 05/31/16 10:27> Date of Encounter: 05/31/16 Time of Encounter: 10:00 Assessment and Plan (1) Abscess of left thigh Current Visit: Yes Status: Acute Daily wound care Cleanse with soap and water, pack with 1/4 inch plain packing, cover with 4X4 gauze and tape to secure daily IV antibiotics- Zosyn and Vancomycin May transition to oral antibiotics upon discharge History of Present Illness Consult date: 05/31/16 Reason for consult: other (left thigh abscess) Requesting physician: Bennett Sheriff History of present illness: Ms. Lopez is a 31 year old female who presented to the hospital with complaints of muscle weakness and numbness. She was found to have a potassium of 1.6 and has been admitted to the ICU for treatment. She also complains of a left thigh abscess which she states has been present for approximately 4 days. She states that it was red and painful and that she stuck a sewing needle in it 2 days ago. She states that it did drain a large amount of purulent drainage. She states that it was the size of a baseball. She has been cleansing it with peroxide and dressing it daily. She feels states the wound has enlarged over the past 2 days. She has had an area similar to this on the right side. Denies any fevers/chills. We have been asked to see and evaluate her for wound care recommendations. Past Med Surg Social Fam HX - Past Medical History Source: old records reviewed Medical history: renal disease 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: depression - Past Surgical History Surgical History: cholecystectomy - Social History Smoking Status: Current every day smoker Packs per day: 2 pack day Smokeless Tobacco Status: No Alcohol use: occasionally Drug use: marijuana, IVDU Current living situation: Home - Independent Activity Level: Independent ambulation - Family History Mother Family Member Ethnicity: Non- Living Status: Age at : 50 Cause of : CHF Hx Family Cardiac Disorders: Yes Father Family Member Ethnicity: Non- Living Status: Still Living Hx Family Cardiac Disorders: Yes Hx Family Cancer: Yes Brother Family Member Ethnicity: Non- Living Status: Age at : 28 Cause of : Overdose of Morphine Medications and Allergies No Known Home Drugs 01/08/16 [History] Allergies No Known Allergies Allergy (Verified 05/30/16 14:47) Review of Systems All systems PM: reviewed and no additional remarkable complaints except as stated (in the HPI) All systems PM: A 10-system review of systems was performed and is negative for pertinent findings except as documented above in the HPI. General Surgery Exam Initial Vital Signs Temp Pulse Resp BP Pulse Ox 98.0 F 77 18 119/85 98 05/30/16 14:48 05/30/16 14:48 05/30/16 14:48 05/30/16 14:48 05/30/16 14:48 - General physical appearance well developed, well nourished, no distress, no pain - Eyes normal ocular movement - ENT normal mucosa, atraumatic, normocephalic - Neck trachea midline - Respiratory normal respiratory effort - Cardiovascular Cardiovascular exam: Present: RRR, 15, 16 - Abdomen Abdomen general surgery: Present: bowel sounds present, soft, non tender - Integumentary Integumentary general surgery: Present: warm and dry, other (left thigh with open wound noted; measures 1.5 X 1.5 X 1cm without tunnelling or undermining noted. No surrounding erythema noted. Mild surrounding induration. Mildly tender to palpation. No fluctuance noted with examination. Minimal amount of serous drainage noted without odor.) - Neurologic Present: CN 2-12 grossly intact - Psychiatric Psychiatric general surgery: Present: appropriate, oriented to person, oriented to place, oriented to time, speech is normal, memory intact Exam Initial Vital Signs Temp Pulse Resp BP Pulse Ox 98.0 F 77 18 119/85 98 05/30/16 14:48 05/30/16 14:48 05/30/16 14:48 05/30/16 14:48 05/30/16 14:48 Results - Labs 05/31/16 04:40 05/31/16 04:40 Abnormal lab results RBC 5.06 M/mcL (3.82-4.97) H 05/31/16 04:40 MCH 26.9 pg (28.0-33.3) L 05/31/16 04:40 RDW 17.9 % (11.5-14.5) H 05/31/16 04:40 Potassium 2.0 mEq/L (3.5-4.5) L* 05/31/16 04:40 Chloride 117 mEq/L (98-109) H 05/31/16 04:40 Carbon Dioxide 14 mEq/L (19-29) L 05/31/16 04:40 POC Glucose 141 (58-89) H 05/30/16 19:30 Calcium 8.1 mg/dL (8.6-10.8) L 05/31/16 04:40 Albumin 2.7 g/dL (3.5-5.0) L 05/31/16 04:40 Globulin 4.1 g/dL (2.4-3.5) H 05/31/16 04:40 Albumin/Globulin Ratio 0.7 (1.1-2.2) L 05/31/16 04:40 Urine Protein 30 mg/dL (Neg-Trace) H 05/30/16 15:10 Ur Squamous Epith Cells Many per lpf (None-Few) H 05/30/16 15:10 Urine Osmolality 250 mOsm/kg (300-1090) L 05/30/16 22:45 All other labs normal. Consult Discharge Plan - Plan Referrals: NO,PCP [Primary Care Provider] - - Attending Attestation I examined this patient and my medical decision-making was reviewed with the ROOF FIXER/PA/Advanced Practice Nurse/Resident Physician. I agree with the documented findings, disposition and treatment plan as described except to the extent set forth below. <Jeancarlos Delgado - Last Filed: 05/31/16 15:51> Review of Systems All systems PM: A 10-system review of systems was performed and is negative for pertinent findings except as documented above in the HPI. General Surgery Exam Initial Vital Signs Temp Pulse Resp BP Pulse Ox 98.0 F 77 18 119/85 98 05/30/16 14:48 05/30/16 14:48 05/30/16 14:48 05/30/16 14:48 05/30/16 14:48 Exam Initial Vital Signs Temp Pulse Resp BP Pulse Ox 98.0 F 77 18 119/85 98 05/30/16 14:48 05/30/16 14:48 05/30/16 14:48 05/30/16 14:48 05/30/16 14:48 Results - Labs 05/31/16 04:40 05/31/16 11:15 Abnormal lab results RBC 5.06 M/mcL (3.82-4.97) H 05/31/16 04:40 MCH 26.9 pg (28.0-33.3) L 05/31/16 04:40 RDW 17.9 % (11.5-14.5) H 05/31/16 04:40 Potassium 2.5 mEq/L (3.5-4.5) L* 05/31/16 11:15 Chloride 117 mEq/L (98-109) H 05/31/16 04:40 Carbon Dioxide 14 mEq/L (19-29) L 05/31/16 04:40 POC Glucose 141 (58-89) H 05/30/16 19:30 Calcium 8.1 mg/dL (8.6-10.8) L 05/31/16 04:40 Albumin 2.7 g/dL (3.5-5.0) L 05/31/16 04:40 Globulin 4.1 g/dL (2.4-3.5) H 05/31/16 04:40 Albumin/Globulin Ratio 0.7 (1.1-2.2) L 05/31/16 04:40 Urine Protein 30 mg/dL (Neg-Trace) H 05/30/16 15:10 Ur Squamous Epith Cells Many per lpf (None-Few) H 05/30/16 15:10 Urine Osmolality 250 mOsm/kg (300-1090) L 05/30/16 22:45 Diabetes panel 05/31/16 Range/Units 11:15 Potassium 2.5 L* (3.5-4.5) mEq/L Pituitary panel 05/31/16 Range/Units 11:15 Potassium 2.5 L* (3.5-4.5) mEq/L Adrenal panel 05/31/16 Range/Units 11:15 Potassium 2.5 L* (3.5-4.5) mEq/L All other labs normal. - Attending Attestation I have seen and evaluated the patient and agree with the documentation and plan. Likely spontaneous ruptured abcess. Local wound care and serial exams Jeancarlos Delgado Md FACS
--- NOTE | 2016-05-31 11:15 | Nephrology Consult Note ---
Date of Encounter: 05/31/16 Time of Encounter: 10:30 Assessment and Plan (1) Hypokalemia Status: Chronic Rule RTA vs familial causes though unlikely with associated metabolic acidosis Agree with aggressive potassium repletion with so far 120MEq already give. Will await followup potassium level and continue serial checks Await renin and aldosterone levels along with cortisol TTKG (transtubular potassium gradient) calculated with measured serum osmolality noted high at 10.33 consistent with renal wasting Careful repletion of bicarbonate level as can worse potassium use (2) Intravenous drug abuse Status: Chronic History of Present Illness - Reason for Consult Consult date: 05/31/16 hypokalemia Requesting physician: Bennett Sheriff - History of Present Illness 31 y o female with PMH of illicit durg use (injected opana) presenting for generalized weakness found to have very low potassium level of 1.6. She was admitted for similar issues back in december with potassium level at 1.3 but left AMA and failed to followup outpatient. She denies any prior potassium problem before this past december. She denies any family history of hypokalemia or kidney disease in general. She denies any diuretics use. No N/V/D. She reports taking OTC potassium 10Meq 1-2 tabs daily when she experienced facial numbness or weakness in her extremities. She denies any history of kidney stones. It is unclear when her last opana use as she is vague on this. Past Med Surg Social Fam HX - Past Medical History Medical history: renal disease 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: depression - Past Surgical History Surgical History: cholecystectomy - Social History Smoking Status: Current every day smoker Packs per day: 2 pack day Smokeless Tobacco Status: No Alcohol use: occasionally Drug use: marijuana, IVDU - Family History Mother Family Member Ethnicity: Non- Living Status: Age at : 50 Cause of : CHF Hx Family Cardiac Disorders: Yes Father Family Member Ethnicity: Non- Living Status: Still Living Hx Family Cardiac Disorders: Yes Hx Family Cancer: Yes Brother Family Member Ethnicity: Non- Living Status: Age at : 28 Cause of : Overdose of Morphine Medications and Allergies Cefdinir [Omnicef] 300 mg PO BID #20 capsule 06/02/16 [Rx] Potassium Chloride 40 meq PO DAILY #60 tab.er.prt 06/02/16 [Rx] Sodium Bicarbonate 650 mg PO BID #120 tablet 06/02/16 [Rx] Diclofenac Sodium [Voltaren] 50 mg PO Q8HR #30 tablet. 06/06/16 [Rx] PredniSONE 60 mg PO DAILY 5 Days 06/06/16 [Rx] Tramadol HCl [Ultram] 50 mg PO Q6HR PRN #20 tab 06/06/16 [Rx] Allergies No Known Allergies Allergy (Verified 05/30/16 14:47) Review of Systems All Systems: reviewed and no additional remarkable complaints except as stated ( 10 system reviewed) Exam - Vital Signs Vital signs: Initial Vital Signs Temp Pulse Resp BP Pulse Ox 98.0 F 77 18 119/85 98 05/30/16 14:48 05/30/16 14:48 05/30/16 14:48 05/30/16 14:48 05/30/16 14:48 Vital Signs - Last 8 Hours Pulse Resp BP Pulse Ox 05/31/16 09:30 76 19 116/60 96 05/31/16 08:30 72 18 115/68 97 05/31/16 07:32 77 19 94/65 95 05/31/16 06:00 69 16 104/56 95 Intake and Output 05/30/16 05/31/16 05/31/16 23:59 07:59 15:59 Intake Total 560 / 560 Balance 560 / 560 Intake: IV Fluids 200 / 200 Potassium Chloride 20 mEq 200 / 200 /100 mL 40 meq In 200 ml @ 100 mls/hr IVPB Q1H PRN Rx#:[id number] Oral 360 / 360 Other: Meal Breakfast Percent of Meal Consumed 100% - General Appearance General appearance: well-developed, well-nourished EENT: ATNC, mucous membranes moist Neck: no JVD, supple Respiratory: clear Cardiology: no edema, normal S1, normal S2 Gastrointestinal: no tenderness, no guarding Integumentary: warm and dry Musculoskeletal: no deformities Additional Comments: tracks noted on UE/LE bilat Psychiatric: mood/affect appropriate, cooperative Results - Lab Results 05/31/16 04:40 06/02/16 06:07 Most recent lab results Calcium 8.1 mg/dL (8.6-10.8) L 05/31/16 04:40 Phosphorus 3.0 mg/dL (2.3-4.7) 05/31/16 04:40 Magnesium 2.6 mg/dL (1.6-2.6) 05/31/16 04:40 Urine Creatinine 27 mg/dL 05/30/16 22:45 Urine Sodium 50.0 mEq/L 05/30/16 22:45 Consult Discharge Plan - Plan Instructions: Hypokalemia (DC), Cigarette Smoking and Your Health (GEN) Additional Instructions: I recommended she follow-up with nephrology for evaluation of her hypokalemia ( low potassium) as scheduled. Regarding the abscess in the back of her leg recommend cleansing with soap and water, cover with 4 x 4 gauze and tape to secure. Follow-up with your primary care physician for reevaluation of your abscess. Return for lab draw at [facility] in 3 days (06/05/2016) Referrals: Kumar Hernandez MD [Partnered Physician] - 06/22/16 1:30 pm Prescriptions: Cefdinir [Omnicef] 300 mg PO BID #20 capsule Potassium Chloride 40 meq PO DAILY #60 tab.er.prt Sodium Bicarbonate 650 mg PO BID #120 tablet
[2016-05-31 11:36] LABS: Magnesium 2.4 mg/dL (1.6-2.6)
[2016-05-31 12:08] LABS: Potassium 2.5 mEq/L (3.5-4.5)
[2016-05-31] MEDS: Vancomycin 1,250 MG in D5% in Water 250 ML IVPB SCH ×2 (12:20→23:26)
--- NOTE | 2016-05-31 15:48 | Electrocardiograph Report ---
[place] [address] Test Date: 2016-05-30 Pat Name: Minnie Lopez Department: 103 Room: 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
--- NOTE | 2016-05-31 15:51 | Electrocardiograph Report ---
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
[2016-06-01] MEDS: *HR* OxyCODONE Immed Rel 5 MG TABLET PO PRN ×3 (02:10→21:53)
[2016-06-01 04:05] LABS: BUN/Creatinine Ratio 16 (6-26); Blood Urea Nitrogen 11 mg/dL (7-20); Calcium 7.6 mg/dL (8.6-10.8); Carbon Dioxide 21 mEq/L (19-29); Chloride 111 mEq/L (98-109); Glucose 122 mg/dL (70-99); Osmolality,Calculated 289 (280-300); Sodium 139 mEq/L (136-145); eGFR For African Americans > 60 (> 60); eGFR For Non-African Americans > 60 (> 60)
[2016-06-01 04:14] LABS: Potassium 2.5 mEq/L (3.5-4.5)
[2016-06-01] MEDS: Potassium Chloride 40 MEQ/200 ML BAG IVPB PRN (04:44)
[2016-06-01] MEDS: *HR* Heparin 5,000 UNIT/ML VIAL SQ SCH ×3 (04:44→22:56)
[2016-06-01] MEDS: Nicotine 14 MG PATCH.TD24 TD SCH (08:32)
[2016-06-01] MEDS: Pantoprazole 40 MG VIAL IVP SCH (08:35)
[2016-06-01] MEDS: Piperacillin/Tazobactam 3.375 GM in D5% in Water (Mini-Bag+) 100 ML IVPB SCH ×3 (08:35→23:54)
--- NOTE | 2016-06-01 08:45 | Pulmonology Progress Note ---
Date of Encounter: 06/01/16 Time of Encounter: 08:45 Assessment and Plan (1) Hypokalemia Current Visit: Yes Status: Chronic Initially patient presented to ER with the potassium of 1.6, after she was admitted to the ICU patient received total potassium of 280 meq, this morning her potassium level was 2.5, urine output for the last 24 hour is more than 5 L , patient still has mild facial tingling numbness, bilateral upper and lower extremity weakness. 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 Nephrology has been consulted, continue to closely monitor patient's potassium level and replace as needed. (2) Abscess of left thigh Current Visit: Yes Status: Acute Surgery has been consulted, wound and blood cultures have been received, wound culture came back gram-negative rebecca, no purulent drainage noted this morning, will discontinue vancomycin and continue Zosyn until sensitivity comes back, continue daily wound care, will follow surgery's recommendation. (3) Bilateral leg weakness Current Visit: No Status: Acute This is likely secondary to severe hypokalemia and neurology has been consulted by night hospitalist team. Also potassium supplementation, patient's symptoms have been improving, continue to closely monitor patient's potassium level, MRI of brain was ordered by neurology. (4) Thyroid nodule Current Visit: No Status: Chronic This is incidental finding from previous admission's MRI of her cervical spine, follow-up as outpatient for thyroid ultrasound. (5) Tobacco abuse Current Visit: Yes Status: Acute Smoking cessation education. Patient smokes 2 packs per day for the last 20 years, slight wheezing noted this morning, patient states her shortness of breath is little bit worse compared to her baseline, possible underlying undiagnosed COPD, will try DuoNeb this morning. (6) DVT prophylaxis Current Visit: No Status: Acute Heparin SQ daily. Subjective Principal diagnosis: Hypokalemia Interval history: Patient initially came to the hospital with facial tingling and numbness, bilateral upper and lower extremity weakness, she was found to have a severe hypokalemia. Patient seen and examined. This morning she states that facial tingling numbness is about the same compared to yesterday, upper and lower extremity weakness about the same as well. Left inner thigh pain is better than yesterday , no yellowish drainage noted this morning. She also complains of dry cough with slight worsening shortness of breath compared to yesterday. Objective PUL Vital signs: Last Vital Signs Temp 98.1 F 06/01/16 07:55 Pulse 77 06/01/16 06:00 Resp 18 06/01/16 06:00 BP 97/67 06/01/16 06:00 Pulse Ox 95 06/01/16 06:00 General appearance: no acute distress Eyes: nonicteric ENT: oropharynx moist Neck: supple Effort: normal Auscultation: bilateral: wheezes (Slightly in upper area bilaterally) Cardiovascular: regular rate and rhythm Gastrointestinal: normoactive bowel sounds, soft, non-tender Integumentary: normal Extremities: no cyanosis, no edema, no clubbing, other (He left inner thigh area dressing applied, no erythema/edema/drainage noted, non-tender to palpation ) Musculoskeletal: no deformities normal mental status, non-focal exam mood appropriate, affect normal Results - Laboratory Findings CBC and BMP: 05/31/16 04:40 06/01/16 03:45 PT/INR, D-dimer PT 11.2 Seconds (9.4-12.1) 05/30/16 22:40 Abnormal lab findings: Abnormal lab results RBC 5.06 M/mcL (3.82-4.97) H 05/31/16 04:40 MCH 26.9 pg (28.0-33.3) L 05/31/16 04:40 RDW 17.9 % (11.5-14.5) H 05/31/16 04:40 Potassium 2.5 mEq/L (3.5-4.5) L* 06/01/16 03:45 Chloride 111 mEq/L (98-109) H 06/01/16 03:45 Glucose 122 mg/dL (70-99) H 06/01/16 03:45 POC Glucose 141 (58-89) H 05/30/16 19:30 Calcium 7.6 mg/dL (8.6-10.8) L 06/01/16 03:45 Albumin 2.7 g/dL (3.5-5.0) L 05/31/16 04:40 Globulin 4.1 g/dL (2.4-3.5) H 05/31/16 04:40 Albumin/Globulin Ratio 0.7 (1.1-2.2) L 05/31/16 04:40 Urine Protein 30 mg/dL (Neg-Trace) H 05/30/16 15:10 Ur Squamous Epith Cells Many per lpf (None-Few) H 05/30/16 15:10 Urine Osmolality 250 mOsm/kg (300-1090) L 05/30/16 22:45 - Clinical Findings Intake & Output: Intake & Output 05/31/16 06/01/16 06/01/16 23:59 07:59 15:59 Intake Total 1690 / 1690 950 / 950 Output Total 850 / 850 2350 / 2350 Balance 840 / 840 -1400 / -1400 Consult Discharge Plan - Plan Referrals: NO,PCP [Primary Care Provider] -
--- NOTE | 2016-06-01 10:11 | Neurology Progress Note ---
Date of Encounter: 06/01/16 Time of Encounter: 10:09 Assessment and Plan (1) Weakness Current Visit: No Status: Acute Likely related to her hypokalemia, as her symptoms are improving with aggressive repletion Nephrology has been consulted and currently working up RTA as she does have metabolic acidosis Awaiting MRI of brain without contrast for further evaluation as there is no previous head imaging (2) Hypokalemia Current Visit: Yes Status: Chronic Initially presented with potassium of 1.6 and she has received replacements via central line Levels of 2.5 today, stable levels since yesterday Repletion and rechecks per primary team and nephrology 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 She states she is feeling stronger in her legs and arms today but still complains of chest pain especially when she takes a deep breath. She apparently refused the MRI yesterday but after speaking at length with her, she seems more open to the idea. Denies any headache, nausea, vomiting , diarrhea. Objective - Constitutional Vitals: Temp Pulse Resp BP Pulse Ox 98.1 F 89 20 109/81 95 06/01/16 07:55 06/01/16 09:00 06/01/16 09:00 06/01/16 09:00 06/01/16 09:00 General appearance: Present: cooperative, no acute distress, answers questions appropriately - Head Head exam: Present: atraumatic, normocephalic - Eye Eye exam: Present: PERRL, conjuntiva pink, sclera anicteric - Extremities Exam Extremities exam: Present: warm, radial pulses palpable and symetrical. Absent : calf tenderness, cyanotic, pedal edema - Neurological Exam Sensorimotor examination: Present: intact Motor Examination: Present: grossly full strength in all extremities Reflex and gait examination: intact Mental Status Examination: Present: awake, alert, oriented to person, oriented to place, oriented to time, follows commands appropriately, answers questions appropriately, no agnosia, no aphasia Cranial nerve examination: Present: PERRL, EOMI Cerebellar examination: Present: no dysmetria, performs finger to nose and heel to mclaughlin symmetrically without ataxia Results - Laboratory Findings CBC and BMP: 05/31/16 04:40 06/01/16 03:45 Abnormal lab findings: Abnormal lab results RBC 5.06 M/mcL (3.82-4.97) H 05/31/16 04:40 MCH 26.9 pg (28.0-33.3) L 05/31/16 04:40 RDW 17.9 % (11.5-14.5) H 05/31/16 04:40 Potassium 2.5 mEq/L (3.5-4.5) L* 06/01/16 03:45 Chloride 111 mEq/L (98-109) H 06/01/16 03:45 Glucose 122 mg/dL (70-99) H 06/01/16 03:45 POC Glucose 141 (58-89) H 05/30/16 19:30 Calcium 7.6 mg/dL (8.6-10.8) L 06/01/16 03:45 Albumin 2.7 g/dL (3.5-5.0) L 05/31/16 04:40 Globulin 4.1 g/dL (2.4-3.5) H 05/31/16 04:40 Albumin/Globulin Ratio 0.7 (1.1-2.2) L 05/31/16 04:40 Urine Protein 30 mg/dL (Neg-Trace) H 05/30/16 15:10 Ur Squamous Epith Cells Many per lpf (None-Few) H 05/30/16 15:10 Urine Osmolality 250 mOsm/kg (300-1090) L 05/30/16 22:45 Consult Discharge Plan - Plan Referrals: NO,PCP [Primary Care Provider] -
--- NOTE | 2016-06-01 10:36 | General Surgery Progress Note ---
<Ananya Lozano Milvia - Last Filed: 06/01/16 10:33> Date of Encounter: 06/01/16 Time of Encounter: 09:15 - Assessment and Plan (1) Abscess of left thigh Current Visit: Yes Status: Acute Daily wound care Cleanse with soap and water, pack with 1/4 inch plain packing, cover with 4X4 gauze and tape to secure daily IV antibiotics- Zosyn and Vancomycin Cultures- GNR, ID and sensitivities pending May transition to oral antibiotics upon discharge Surgery will sign off at this time. Thank you for allowing us to participate in this patients care. Please call with any further questions/concerns. Subjective Patient reports: no new complaints, tolerating a regular diet, afebrile, other ( complaints of chest discomfort and difficulty taking deep breaths) Objective Vital Signs - Last 8 Hours Temp Pulse Resp BP Pulse Ox 06/01/16 10:00 95 20 101/57 97 06/01/16 09:00 89 20 109/81 95 06/01/16 08:00 77 20 125/52 95 06/01/16 07:55 98.1 F 06/01/16 06:00 77 18 97/67 95 06/01/16 05:00 67 16 108/61 97 06/01/16 04:00 98.1 F 69 18 94/59 97 06/01/16 03:00 78 16 101/67 96 Intake and Output 05/31/16 06/01/16 06/01/16 23:59 07:59 15:59 Intake Total 1690 / 1690 950 / 950 410 / 410 Output Total 850 / 850 2350 / 2350 Balance 840 / 840 -1400 / -1400 410 / 410 Intake: IV Fluids 1450 / 1450 750 / 750 Sodium Bicarbonate 150 1150 / 1150 MEQ In Dextrose 5% 1,000 ML @ 100 mls/hr IVC . [id number] SARTH[facility] Rx#: [id number] Zosyn 3.375 GM In 100 / 100 100 / 100 Dextrose 5% (Minibag+) 100 ML 100 ML @ 25 mls/hr IVPB Q8HR [facility] Rx#: [id number] Potassium Chloride 20 mEq 200 / 200 400 / 400 /100 mL 40 meq In 200 ml @ 100 mls/hr IVPB Q1H PRN Rx#:[id number] Vancocin 1,250 MG In 250 / 250 Dextrose 5% 250 ML @ 166. 67 mls/hr IVPB Q12H [facility] Rx#:[id number] Oral 240 / 240 200 / 200 410 / 410 Output: Catheter 850 / 850 2350 / 2350 Other: Meal Dinner Breakfast Percent of Meal Consumed 70% 100% - General physical appearance well developed, well nourished, no distress - Eyes normal ocular movement - ENT normal mucosa, poor group home, atraumatic, normocephalic - Neck Neck exam: trachea midline - Respiratory normal respiratory effort, clear to auscultation - Cardiovascular Cardiovascular exam: Present: RRR - Abdomen Abdomen: Present: bowel sounds present, soft, non tender - Incision Incision: Present: open (left thigh with open wound 90% granulation tissue, 10% fibrin; minimal surrounding induration (improving); no surrounding erythema; no tunnelling or undermining noted; no undrained fluid noted) - Neurologic CN 2-12 grossly intact - Musculoskeletal normal gait, normal posture - Psychiatric oriented to time, oriented to person, oriented to place, speech is normal, memory intact - Labs 05/31/16 04:40 06/01/16 03:45 Diabetes panel 05/31/16 05/31/16 05/31/16 Range/Units 11:15 16:45 21:23 Sodium (136-145) mEq/L Potassium 2.5 L* 2.5 L* 2.7 L (3.5-4.5) mEq/L Chloride (98-109) mEq/L Carbon Dioxide (19-29) mEq/L BUN (7-20) mg/dL Creatinine (0.57-1.11) mg/dL Glucose (70-99) mg/dL Calcium (8.6-10.8) mg/dL 06/01/16 Range/Units 03:45 Sodium 139 (136-145) mEq/L Potassium 2.5 L* (3.5-4.5) mEq/L Chloride 111 H (98-109) mEq/L Carbon Dioxide 21 (19-29) mEq/L BUN 11 (7-20) mg/dL Creatinine 0.70 (0.57-1.11) mg/dL Glucose 122 H (70-99) mg/dL Calcium 7.6 L (8.6-10.8) mg/dL Calcium panel 06/01/16 Range/Units 03:45 Calcium 7.6 L (8.6-10.8) mg/dL Pituitary panel 05/31/16 05/31/16 05/31/16 Range/Units 11:15 16:45 21:23 Sodium (136-145) mEq/L Potassium 2.5 L* 2.5 L* 2.7 L (3.5-4.5) mEq/L Chloride (98-109) mEq/L Carbon Dioxide (19-29) mEq/L BUN (7-20) mg/dL Creatinine (0.57-1.11) mg/dL Glucose (70-99) mg/dL Calcium (8.6-10.8) mg/dL 06/01/16 Range/Units 03:45 Sodium 139 (136-145) mEq/L Potassium 2.5 L* (3.5-4.5) mEq/L Chloride 111 H (98-109) mEq/L Carbon Dioxide 21 (19-29) mEq/L BUN 11 (7-20) mg/dL Creatinine 0.70 (0.57-1.11) mg/dL Glucose 122 H (70-99) mg/dL Calcium 7.6 L (8.6-10.8) mg/dL Adrenal panel 05/31/16 05/31/16 05/31/16 Range/Units 11:15 16:45 21:23 Sodium (136-145) mEq/L Potassium 2.5 L* 2.5 L* 2.7 L (3.5-4.5) mEq/L Chloride (98-109) mEq/L Carbon Dioxide (19-29) mEq/L BUN (7-20) mg/dL Creatinine (0.57-1.11) mg/dL Glucose (70-99) mg/dL Calcium (8.6-10.8) mg/dL 06/01/16 Range/Units 03:45 Sodium 139 (136-145) mEq/L Potassium 2.5 L* (3.5-4.5) mEq/L Chloride 111 H (98-109) mEq/L Carbon Dioxide 21 (19-29) mEq/L BUN 11 (7-20) mg/dL Creatinine 0.70 (0.57-1.11) mg/dL Glucose 122 H (70-99) mg/dL Calcium 7.6 L (8.6-10.8) mg/dL Consult Discharge Plan - Plan Referrals: NO,PCP [Primary Care Provider] - - Attending Attestation I examined this patient and my medical decision-making was reviewed with the JEWELRY TECHNICIAN/PA/Advanced Practice Nurse/Resident Physician. I agree with the documented findings, disposition and treatment plan as described except to the extent set forth below. <Jeancarlos Delgado - Last Filed: 06/01/16 13:52> Objective Vital Signs - Last 8 Hours Temp Pulse Resp BP Pulse Ox 06/01/16 12:05 98.4 F 06/01/16 12:00 83 06/01/16 11:52 18 96 06/01/16 11:00 83 18 96 06/01/16 10:00 95 20 101/57 97 06/01/16 09:00 89 20 109/81 95 06/01/16 08:00 77 20 125/52 95 06/01/16 07:55 98.1 F 06/01/16 06:00 77 18 97/67 95 Intake and Output 05/31/16 06/01/16 06/01/16 23:59 07:59 15:59 Intake Total 1690 / 1690 950 / 950 750 / 750 Output Total 850 / 850 2350 / 2350 Balance 840 / 840 -1400 / -1400 750 / 750 Intake: IV Fluids 1450 / 1450 750 / 750 100 / 100 Sodium Bicarbonate 150 1150 / 1150 MEQ In Dextrose 5% 1,000 ML @ 100 mls/hr IVC . [id number] [facility] Rx#: [id number] Zosyn 3.375 GM In 100 / 100 100 / 100 100 / 100 Dextrose 5% (Minibag+) 100 ML 100 ML @ 25 mls/hr IVPB Q8HR [facility] Rx#: [id number] Potassium Chloride 20 mEq 200 / 200 400 / 400 /100 mL 40 meq In 200 ml @ 100 mls/hr IVPB Q1H PRN Rx#:[id number] Vancocin 1,250 MG In 250 / 250 Dextrose 5% 250 ML @ 166. 67 mls/hr IVPB Q12H [facility] Rx#:[id number] Oral 240 / 240 200 / 200 650 / 650 Output: Catheter 850 / 850 2350 / 2350 Other: Meal Dinner Lunch Percent of Meal Consumed 70% 100% - Labs 05/31/16 04:40 06/01/16 10:45 Diabetes panel 05/31/16 05/31/16 06/01/16 Range/Units 16:45 21:23 03:45 Sodium 139 (136-145) mEq/L Potassium 2.5 L* 2.7 L 2.5 L* (3.5-4.5) mEq/L Chloride 111 H (98-109) mEq/L Carbon Dioxide 21 (19-29) mEq/L BUN 11 (7-20) mg/dL Creatinine 0.70 (0.57-1.11) mg/dL Glucose 122 H (70-99) mg/dL Calcium 7.6 L (8.6-10.8) mg/dL 06/01/16 Range/Units 10:45 Sodium (136-145) mEq/L Potassium 3.3 L (3.5-4.5) mEq/L Chloride (98-109) mEq/L Carbon Dioxide (19-29) mEq/L BUN (7-20) mg/dL Creatinine (0.57-1.11) mg/dL Glucose (70-99) mg/dL Calcium (8.6-10.8) mg/dL Calcium panel 06/01/16 Range/Units 03:45 Calcium 7.6 L (8.6-10.8) mg/dL Pituitary panel 05/31/16 05/31/16 06/01/16 Range/Units 16:45 21:23 03:45 Sodium 139 (136-145) mEq/L Potassium 2.5 L* 2.7 L 2.5 L* (3.5-4.5) mEq/L Chloride 111 H (98-109) mEq/L Carbon Dioxide 21 (19-29) mEq/L BUN 11 (7-20) mg/dL Creatinine 0.70 (0.57-1.11) mg/dL Glucose 122 H (70-99) mg/dL Calcium 7.6 L (8.6-10.8) mg/dL 06/01/16 Range/Units 10:45 Sodium (136-145) mEq/L Potassium 3.3 L (3.5-4.5) mEq/L Chloride (98-109) mEq/L Carbon Dioxide (19-29) mEq/L BUN (7-20) mg/dL Creatinine (0.57-1.11) mg/dL Glucose (70-99) mg/dL Calcium (8.6-10.8) mg/dL Adrenal panel 05/31/16 05/31/16 06/01/16 Range/Units 16:45 21:23 03:45 Sodium 139 (136-145) mEq/L Potassium 2.5 L* 2.7 L 2.5 L* (3.5-4.5) mEq/L Chloride 111 H (98-109) mEq/L Carbon Dioxide 21 (19-29) mEq/L BUN 11 (7-20) mg/dL Creatinine 0.70 (0.57-1.11) mg/dL Glucose 122 H (70-99) mg/dL Calcium 7.6 L (8.6-10.8) mg/dL 06/01/16 Range/Units 10:45 Sodium (136-145) mEq/L Potassium 3.3 L (3.5-4.5) mEq/L Chloride (98-109) mEq/L Carbon Dioxide (19-29) mEq/L BUN (7-20) mg/dL Creatinine (0.57-1.11) mg/dL Glucose (70-99) mg/dL Calcium (8.6-10.8) mg/dL - Attending Attestation AThe patient is seen and evaluated. She should do well with wound packing and antibiotics, no need for further debridement at this time Jeancarlos Delgado MD FACS
[2016-06-01] MEDS: Ipratropium/Albuterol Neb 3 ML IH SCH ×4 (11:47→22:31)
--- NOTE | 2016-06-01 11:53 | Electrocardiograph Report ---
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
[2016-06-01] MEDS ORDERED: Naloxone 0.4 MG/ML INJ IVP PRN (15:10)
[2016-06-01] MEDS ORDERED: Ondansetron 4 MG/2 ML VIAL IVP PRN (15:10)
[2016-06-01] MEDS ORDERED: Acetaminophen 325 MG TABLET PO PRN (15:10)
--- NOTE | 2016-06-01 17:49 | Nephrology Progress Note ---
Date of Encounter: 06/01/16 Time of Encounter: 10:00 - Assessment and Plan (1) Hypokalemia Status: Chronic potassium initially improved at 2.7 after 160meq potassium supplements but dropping to 2.5 Will aggressively increase supplements today for a total of 120meq at 40meq q4 Will start po sodium bicarb at 650mg tid as well (2) Intravenous drug abuse Status: Chronic per primary team. makes for the possible of tubular damage causing severe hypokalemia Subjective Principal diagnosis: Hypokalemia Interval history: Pt seen and examined appears less alert and not articulative. Per nurse, pt may be under the influence of an ilicit substance after a visit from a female relative. Objective - Vital Signs Vital signs: Vital Signs Temp Pulse Resp BP Pulse Ox 06/01/16 16:02 16 96 06/01/16 15:28 98.6 F 85 16 107/70 97 06/01/16 12:05 98.4 F 06/01/16 12:00 83 06/01/16 11:52 18 96 06/01/16 11:00 83 18 96 06/01/16 10:00 95 20 101/57 97 06/01/16 09:00 89 20 109/81 95 06/01/16 08:00 77 20 125/52 95 06/01/16 07:55 98.1 F 06/01/16 06:00 77 18 97/67 95 06/01/16 05:00 67 16 108/61 97 06/01/16 04:00 98.1 F 69 18 94/59 97 06/01/16 03:00 78 16 101/67 96 06/01/16 02:00 71 18 90/54 96 06/01/16 01:00 72 20 105/59 96 06/01/16 00:00 98.3 F 77 16 110/60 97 05/31/16 23:00 82 18 111/67 96 05/31/16 22:00 80 22 123/80 98 05/31/16 21:00 88 26 165/78 100 05/31/16 20:00 98.0 F 87 16 116/71 97 05/31/16 19:00 83 14 108/61 97 05/31/16 18:37 84 20 108/73 98 Intake and Output 06/01/16 06/01/16 06/01/16 07:59 15:59 23:59 Intake Total 950 / 950 750 / 750 240 / 240 Output Total 2350 / 2350 850 / 850 Balance -1400 / -1400 -100 / -100 240 / 240 Intake: IV Fluids 750 / 750 100 / 100 Zosyn 3.375 GM In 100 / 100 100 / 100 Dextrose 5% (Minibag+) 100 ML 100 ML @ 25 mls/hr IVPB Q8HR [facility] Rx#: [id number] Potassium Chloride 20 mEq 400 / 400 /100 mL 40 meq In 200 ml @ 100 mls/hr IVPB Q1H PRN Rx#:[id number] Vancocin 1,250 MG In 250 / 250 Dextrose 5% 250 ML @ 166. 67 mls/hr IVPB Q12H [facility] Rx#:[id number] Oral 200 / 200 650 / 650 240 / 240 Output: Catheter 2350 / 2350 850 / 850 Other: Meal Lunch Dinner Percent of Meal Consumed 100% 100% Stool Size Moderate Stool Consistency formed Stool Characteristics Normal for Patient Stool Color Brown - General Appearance General appearance: Present: well-developed, well-nourished, anxious EENT: Present: ATNC, mucous membranes moist Neck: Present: no JVD, supple Respiratory: Present: clear Cardiology: Present: no edema, normal S1, normal S2 Gastrointestinal: Present: no tenderness, no guarding Integumentary: Present: warm and dry Neurologic: Present: disoriented Musculoskeletal: Present: no deformities Psychiatric: Present: cooperative - Lab 05/31/16 04:40 06/02/16 06:07 Most recent lab results Calcium 7.6 mg/dL (8.6-10.8) L 06/01/16 03:45 Phosphorus 3.0 mg/dL (2.3-4.7) 05/31/16 04:40 Magnesium 2.4 mg/dL (1.6-2.6) 05/31/16 11:15 Urine Creatinine 27 mg/dL 05/30/16 22:45 Urine Sodium 50.0 mEq/L 05/30/16 22:45 Consult Discharge Plan - Plan Instructions: Hypokalemia (DC), Cigarette Smoking and Your Health (GEN) Additional Instructions: I recommended she follow-up with nephrology for evaluation of her hypokalemia ( low potassium) as scheduled. Regarding the abscess in the back of her leg recommend cleansing with soap and water, cover with 4 x 4 gauze and tape to secure. Follow-up with your primary care physician for reevaluation of your abscess. Return for lab draw at [facility] in 3 days (06/05/2016) Referrals: Kumar Hernandez MD [Partnered Physician] - 06/22/16 1:30 pm Prescriptions: Cefdinir [Omnicef] 300 mg PO BID #20 capsule Potassium Chloride 40 meq PO DAILY #60 tab.er.prt Sodium Bicarbonate 650 mg PO BID #120 tablet
[2016-06-01 18:06] LABS: Total Volume 24 Hour,Urine 5.21 Liters (0.60-1.60)
[2016-06-01 18:40] LABS: Creatinine 24 Hour,Urine 0.94 g/day (0.71-1.65); Potassium 24 Hour,Urine 72.4 mEq/day (25.0-125.0)
[2016-06-01 18:44] LABS: Potassium,Urine 13.9 mEq/L
[2016-06-02] MEDS: Ipratropium/Albuterol Neb 3 ML IH SCH (04:15)
[2016-06-02] MEDS: *HR* Heparin 5,000 UNIT/ML VIAL SQ SCH (06:10)
[2016-06-02] MEDS: *HR* OxyCODONE Immed Rel 5 MG TABLET PO PRN (06:11)
[2016-06-02 07:02] LABS: BUN/Creatinine Ratio 13 (6-26); Blood Urea Nitrogen 10 mg/dL (7-20); Carbon Dioxide 22 mEq/L (19-29); Chloride 112 mEq/L (98-109); Glucose 98 mg/dL (70-99); Osmolality,Calculated 289 (280-300); Potassium 3.3 mEq/L (3.5-4.5); Sodium 140 mEq/L (136-145); eGFR For African Americans > 60 (> 60); eGFR For Non-African Americans > 60 (> 60)
[2016-06-02] MEDS: Piperacillin/Tazobactam 3.375 GM in D5% in Water (Mini-Bag+) 100 ML IVPB SCH (08:25)
[2016-06-02] MEDS ORDERED: Albuterol 2.5 MG/3 ML NEBULIZER IH PRN (08:33)
[2016-06-02] MEDS ORDERED: Pantoprazole 40 MG VIAL IVP SCH (09:00)
[2016-06-02] MEDS ORDERED: Nicotine 14 MG PATCH.TD24 TD SCH (09:00)
--- NOTE | 2016-06-02 09:10 | Neurology Progress Note ---
Date of Encounter: 06/02/16 Time of Encounter: 09:07 Assessment and Plan (1) Weakness Current Visit: Yes Status: Acute Likely related to her hypokalemia, as her symptoms have nearly resolved with repletion Nephrology has been consulted and currently working up RTA as she does have metabolic acidosis She has refused brain MRI to rule out any cranial lesions Neurology will sign off, please call back with any questions (2) Hypokalemia Current Visit: Yes Status: Chronic Initially presented with potassium of 1.6 and she has received aggressive repletion Levels of 3.3 today, stable levels since yesterday Repletion and rechecks per primary team and nephrology (3) Intravenous drug abuse Current Visit: No Status: Chronic Patient claims her last use was December and she UDS was clean, however there are track steiner noted upon examination She does have history of Opana abuse Subjective Principal diagnosis: Hypokalemia Interval history: Pt seen and examined. She states she continues to feel stronger today and is near her baseline. She still complains of right sided rib pain but has no issues with headache, nausea, vomiting, or difficulty urinating. No visual complaints or sensory deficits. Objective - Constitutional Vitals: Temp Pulse Resp BP Pulse Ox 98.2 F 79 18 100/65 99 06/02/16 07:15 06/02/16 07:15 06/02/16 07:15 06/02/16 07:15 06/02/16 07:15 General appearance: Present: cooperative, pleasant, no acute distress, obese, answers questions appropriately - Head Head exam: Present: atraumatic, normocephalic - Eye Eye exam: Present: EOMI, PERRL, conjuntiva pink, sclera anicteric - Extremities Exam Extremities exam: Present: warm, radial pulses palpable and symetrical. Absent : calf tenderness, cyanotic, pedal edema - Neurological Exam Sensorimotor examination: Present: intact Motor Examination: Present: grossly full strength in all extremities, full strength in all major muscle groups Motor examination - right side: 5/5: deltoids, biceps, triceps, wrist flexion, wrist extension, roguer, hip flexors, tibialis Anterior, quadriceps Motor examination - left side: 5/5: deltoids, biceps, triceps, wrist flexion, wrist extension, hip flexors, roguer, quadriceps, tibialis Anterior Sensation intact: Present: intact Reflex and gait examination: intact Mental Status Examination: Present: awake, alert, oriented to person, oriented to place, oriented to time, follows commands appropriately, answers questions appropriately, no agnosia, no aphasia Cranial nerve examination: Present: PERRL, EOMI Cerebellar examination: Present: no dysmetria, performs finger to nose and heel to mclaughlin symmetrically without ataxia Results - Laboratory Findings CBC and BMP: 05/31/16 04:40 06/02/16 06:07 Abnormal lab findings: Abnormal lab results RBC 5.06 M/mcL (3.82-4.97) H 05/31/16 04:40 MCH 26.9 pg (28.0-33.3) L 05/31/16 04:40 RDW 17.9 % (11.5-14.5) H 05/31/16 04:40 Potassium 3.3 mEq/L (3.5-4.5) L 06/02/16 06:07 Chloride 112 mEq/L (98-109) H 06/02/16 06:07 POC Glucose 141 (58-89) H 05/30/16 19:30 Calcium 8.0 mg/dL (8.6-10.8) L 06/02/16 06:07 Albumin 2.7 g/dL (3.5-5.0) L 05/31/16 04:40 Globulin 4.1 g/dL (2.4-3.5) H 05/31/16 04:40 Albumin/Globulin Ratio 0.7 (1.1-2.2) L 05/31/16 04:40 Urine Protein 30 mg/dL (Neg-Trace) H 05/30/16 15:10 Ur Squamous Epith Cells Many per lpf (None-Few) H 05/30/16 15:10 Urine Osmolality 250 mOsm/kg (300-1090) L 05/30/16 22:45 Urine Total Volume 5.21 Liters (0.60-1.60) H 05/31/16 01:30 Consult Discharge Plan - Plan Referrals: NO,PCP [Primary Care Provider] -
[2016-06-02 10:40] VITALS: BP 117/77
--- NOTE | 2016-06-02 11:13 | Nephrology Progress Note ---
<Hattie Dave Milvia - Last Filed: 06/02/16 11:16> Date of Encounter: 06/02/16 Time of Encounter: 11:11 - Assessment and Plan (1) Hypokalemia Status: Chronic K+ stable Will decrease potassium to 40meq once daily, to go home on this dose. Bicarb WNL Decrease sodium bicarb to 650m BID, to go home on this dose BMP 3 days after discharge Follow up with Dr Smith one week after discharge. Ok for a nephrology standpoint to be discharged. (2) Intravenous drug abuse Status: Chronic per primary team Subjective Principal diagnosis: Hypokalemia Interval history: Patient seen and examined. Sitting on bed talking on phone. Denies any N/V/D. Objective - Vital Signs Vital signs: Vital Signs Temp Pulse Resp BP Pulse Ox 06/02/16 10:40 98.1 F 78 16 117/77 96 06/02/16 07:15 98.2 F 79 18 100/65 99 06/01/16 23:44 98.4 F 91 20 128/72 97 06/01/16 22:31 18 98 06/01/16 19:28 98.4 F 83 18 115/73 98 06/01/16 16:02 16 96 06/01/16 15:28 98.6 F 85 16 107/70 97 06/01/16 12:05 98.4 F 06/01/16 12:00 83 06/01/16 11:52 18 96 Intake and Output 06/01/16 06/02/16 06/02/16 23:59 07:59 15:59 Intake Total 460 / 460 160 / 160 240 / 240 Balance 460 / 460 160 / 160 240 / 240 Intake: IV Fluids 100 / 100 100 / 100 Zosyn 3.375 GM In 100 / 100 100 / 100 Dextrose 5% (Minibag+) 100 ML 100 ML @ 25 mls/hr IVPB Q8HR [facility] Rx#: [id number] Oral 360 / 360 60 / 60 240 / 240 Other: Meal Dinner Breakfast Percent of Meal Consumed 100% 100% - General Appearance General appearance: Present: well-developed, well-nourished, obese EENT: Present: ATNC, mucous membranes moist, hearing intact, vision intact Neck: Present: supple Respiratory: Present: clear Cardiology: Present: no edema, normal S1, normal S2 Gastrointestinal: Present: no tenderness, no guarding Integumentary: Present: warm and dry Psychiatric: Present: mood/affect appropriate, cooperative - Lab 05/31/16 04:40 06/02/16 06:07 Most recent lab results Calcium 8.0 mg/dL (8.6-10.8) L 06/02/16 06:07 Phosphorus 3.0 mg/dL (2.3-4.7) 05/31/16 04:40 Magnesium 2.4 mg/dL (1.6-2.6) 05/31/16 11:15 Urine Creatinine 18 mg/dL 05/31/16 01:30 Urine Sodium 50.0 mEq/L 05/30/16 22:45 Consult Discharge Plan - Plan Instructions: Hypokalemia (DC), Cigarette Smoking and Your Health (GEN) Additional Instructions: I recommended she follow-up with nephrology for evaluation of her hypokalemia ( low potassium) as scheduled. Regarding the abscess in the back of her leg recommend cleansing with soap and water, cover with 4 x 4 gauze and tape to secure. Follow-up with your primary care physician for reevaluation of your abscess. Return for lab draw at [facility] in 3 days (06/05/2016) Referrals: Kumar Hernandez MD [Partnered Physician] - 06/22/16 1:30 pm Prescriptions: Cefdinir [Omnicef] 300 mg PO BID #20 capsule Potassium Chloride 40 meq PO DAILY #60 tab.er.prt Sodium Bicarbonate 650 mg PO BID #120 tablet <Kumar Hernandez - Last Filed: 06/09/16 23:57> - Assessment and Plan (1) Hypokalemia Status: Chronic (2) Intravenous drug abuse Status: Chronic Objective - Lab 05/31/16 04:40 06/02/16 06:07 Most recent lab results Calcium 8.0 mg/dL (8.6-10.8) L 06/02/16 06:07 Phosphorus 3.0 mg/dL (2.3-4.7) 05/31/16 04:40 Magnesium 2.4 mg/dL (1.6-2.6) 05/31/16 11:15 Urine Creatinine 18 mg/dL 05/31/16 01:30 Urine Sodium 50.0 mEq/L 05/30/16 22:45 - Attending Attestation I examined this patient and my medical decision-making was reviewed with the SOLUTION CONSULTANT/PA/Advanced Practice Nurse/Resident Physician. I agree with the documented findings, disposition and treatment plan as described except to the extent set forth below. Potassium improved at 3.3. ok to discharge from a renal standpoint with 40meq daily supplement Continue sodium bicarb 650mg bid Followup with me within 2 weeks with BMP a week from discharge
--- NOTE | 2016-06-02 12:55 | Discharge Summary ---
<Teofilo Barrientos - Last Filed: 06/04/16 14:00> Date of Encounter: 06/02/16 Time of Encounter: 12:53 - Discharge Diagnosis (1) Hypokalemia Priority: Primary Status: Acute (2) Thyroid nodule Priority: Secondary Status: Chronic (3) Abscess of left thigh Priority: Primary Status: Acute (4) Intravenous drug abuse Priority: Primary Status: Chronic - Discharge Medications Prescriptions: Cefdinir [Omnicef] 300 mg PO BID #20 capsule Potassium Chloride 40 meq PO DAILY #60 tab.er.prt Sodium Bicarbonate 650 mg PO BID #120 tablet Home Medications: Cefdinir [Omnicef] 300 mg PO BID #20 capsule 06/02/16 [Rx] Potassium Chloride 40 meq PO DAILY #60 tab.er.prt 06/02/16 [Rx] Sodium Bicarbonate 650 mg PO BID #120 tablet 06/02/16 [Rx] Allergies/Adverse Reactions: Allergies No Known Allergies Allergy (Verified 05/30/16 14:47) Procedures/tests Complete & Pending: Procedures Performed prior 72 hours Category Date Time Status MR head/brain wo con [MR] Routine MRI 05/31/16 13:42 Ordered ECG 12 lead ECG [ECG] Routine Y 05/30/16 21:36 Completed ECG 12 lead ECG [ECG] Routine Y 05/31/16 21:35 Completed Date of admission: 05/31/16 05:50 Primary care physician: PCP NO Discharging clinician: Teofilo Barrientos Anticipated date of discharge: 06/02/16 - Patient Status Disposition: Home, Self-Care Condition: Good Functional capacity at discharge: independent ambulation Overall status at discharge: patient is progressing back to baseline - Discharge Instructions Instructions: Hypokalemia (DC), Cigarette Smoking and Your Health (GEN) Follow Up With: Kumar Hernandez MD [Partnered Physician] - 06/22/16 1:30 pm Additional Instructions: I recommended she follow-up with nephrology for evaluation of her hypokalemia ( low potassium) as scheduled. Regarding the abscess in the back of her leg recommend cleansing with soap and water, cover with 4 x 4 gauze and tape to secure. Follow-up with your primary care physician for reevaluation of your abscess. Return for lab draw at [facility] in 3 days (06/05/2016) - Diet and Activity Activity: increase activity as tolerated Diet: regular diet Interval History: Ms. Lopez is a 31 year old female with prior medical history of an episode of IV drug use abuse and hypokalemia last December presents to the emergency department the day of 05/30/16 due to 1 day onset of muscle weakness and numbness. She was found to have a potassium of 1.6 upon evaluation and admitted to not following up with any practitioner after discharge. She had been taking [id number] potassium tablets at 10meq that she bought at the store. She denies usage of any diuretics, any laxatives, as only had one episode of emesis. At the time of admission she also admitted to a wound located on her left inner thigh that is present for couple of days it started off as a pimple. After admission the patient was started on IV potassium and by mouth potassium +1 g magnesium with frequent electrolyte reevaluation. Culture was obtained from the left inner thigh wound and the patient was started on vancomycin and Zosyn for antibiotic coverage. Consults to nephrology and neurology were placed and she was admitted to the intensive care unit with central line placed. After nephrology evaluation there is concern for renal tubular acidosis versus familial causes of hypokalemia and metabolic acidosis. General surgery was consulted regarding the abscess on the inner left thigh for which drainage was completed and care was provided. Neurology evaluation suspect diffuse weakness likely secondary to hypokalemia. Nephrology adjusted by mouth potassium to 40 mL each use daily and by mouth bicarbonate 650 mg twice a day. Throughout the patient stated the patient progressively improved with resolution of weakness improvement and metabolic status. She is transferred to the general medical floor and underwent continued inpatient care. On 06/02/2016 the patient was seen and evaluated at bedside and deemed stable for discharge with close follow-up with Dr. Smith in one week after discharge and her primary care physician for reevaluation. Hospital course: Ms. Lopez is a 31 year old female - Time Spent with Patient Total time spent providing and/or coordinating discharge services: - Constitutional Vitals: Temp Pulse Resp BP Pulse Ox 98.1 F 78 16 117/77 96 06/02/16 10:40 06/02/16 10:40 06/02/16 10:40 06/02/16 10:40 06/02/16 10:40 General appearance: Present: cooperative, mild distress, A&O X 3, pleasant, answers questions appropriately - Head Head exam: Present: atraumatic, normocephalic - Eye Eye exam: Present: PERRL, conjuntiva pink, sclera anicteric Pupils: Present: PERRL - Neck Neck exam general surgery: Present: supple, trachea midline. Absent: lymphadenopathy - Respiratory Respiratory exam: Present: CTAB. Absent: accessory muscle use, rales, rhonchi, wheezes - Cardiovascular Cardiovascular exam: Present: RRR, +S1, +S2. Absent: diastolic murmur, gallop, rubs, systolic murmur - GI/Abdominal GI/Abdominal exam: Present: normal bowel sounds, soft, no peritoneal signs. Absent: distended, tenderness - Extremities Exam Extremities exam: Present: warm, radial pulses palpable and symetrical. Absent : calf tenderness, cyanotic, pedal edema Additional comments: hands b/l demonstrate venous changes of chronic IV drug abuse with scaring and healing tract steiner. left post thigh abscess covered and dressed. - Neurological Exam Neurological exam: Present: CN II-XII intact, oriented X3, no focal deficits. Absent: pronater drift, facial droop, speech deficit - Psychiatric Psychiatric exam: Present: normal affect, normal mood <Wilton Quintanilla - Last Filed: 06/05/16 15:36> Date of admission: 05/31/16 05:50 Primary care physician: PCP NO Hospital course: Ms. Lopez is a 31 year old female - Time Spent with Patient Total time spent providing and/or coordinating discharge services: - Constitutional Vitals: Temp Pulse Resp BP Pulse Ox 98.1 F 78 16 117/77 96 06/02/16 10:40 06/02/16 10:40 06/02/16 10:40 06/02/16 10:40 06/02/16 10:40 - Attending Attestation I examined this patient and my medical decision-making was reviewed with the Resident Physician on 06/02/16. I agree with the documented findings, disposition and treatment plan as described except to the extent set forth below. Ms. Lopez is feeling OK at this time. No fever. No cough. Vitals stable. OK for d/c per renal service. Exam Alert. Comfortable Heart reg Lungs clear Plan D/c home today on PO bicarb and KCL Follow up with renal service.
== END 2016-06-02 15:12 | disposition home or self-care (01) | DRG 425 ==
LOC: EMEROO 14:39 → ICNU 14:39 → SUATTDRO 05-31 05:50 → 2ANU 06-01 15:03
PROVIDERS: ADMIT Internal Medicine; ATTEND Internal Medicine